=== PATIENT | female | born 1935 | race Caucasian/White ===

== ENCOUNTER → 2020-06-27 11:25 | Outpatient (BNVA) | payer MEDICARE, SELFPAY | PROVIDERS: PCP Internal Medicine; Visit Provider Internal Medicine | DX: J44.9 Chronic obstructive pulmonary disease, unspecified (principal); G70.00 Myasthenia gravis without (acute) exacerbation | CPT/HCPCS: 99212 ==

== ENCOUNTER 2020-08-19 11:53 | Outpatient (REF) | payer MEDICARE, SELFPAY ==
--- NOTE | ~2020-08-19 | XR_ITS ---
EXAMINATION: THORACIC SPINE X-RAY, LEFT RIB AND CHEST X-RAY CLINICAL INFORMATION: Back pain. Fall. COMPARISON: Previous chest x-ray and chest CT September 2017 TECHNIQUE: 3 views of the thoracic spine, one view of the chest and 3 views of the left ribs FINDINGS: Thoracic spine: There is a severe old T12 vertebral body compression fracture that is unchanged. No acute fracture or dislocation is seen. There is a sclerotic lesion in the T7 vertebral body that is unchanged. There is multilevel degenerative change. Chest and left RIBS: The cardiac and mediastinal contours are stable. There is a large esophageal hernia. The lungs are clear. There is no pleural effusion or pneumothorax. No rib fracture is seen. XR/XR ribs LT min 3V w CXR1V IMPRESSION: Thoracic spine: Old T12 vertebral body compression fracture and sclerotic lesion in the T7 vertebral body similar to previous exams. Degenerative changes. No acute fracture seen. Chest and left RIBS: Large esophageal hernia. No evidence for acute disease in the chest. No rib fracture seen.
--- NOTE | ~2020-08-19 | XR_ITS ---
EXAMINATION: THORACIC SPINE X-RAY, LEFT RIB AND CHEST X-RAY CLINICAL INFORMATION: Back pain. Fall. COMPARISON: Previous chest x-ray and chest CT September 2017 TECHNIQUE: 3 views of the thoracic spine, one view of the chest and 3 views of the left ribs FINDINGS: Thoracic spine: There is a severe old T12 vertebral body compression fracture that is unchanged. No acute fracture or dislocation is seen. There is a sclerotic lesion in the T7 vertebral body that is unchanged. There is multilevel degenerative change. Chest and left RIBS: The cardiac and mediastinal contours are stable. There is a large esophageal hernia. The lungs are clear. There is no pleural effusion or pneumothorax. No rib fracture is seen. XR/XR thoracic spine 3V IMPRESSION: Thoracic spine: Old T12 vertebral body compression fracture and sclerotic lesion in the T7 vertebral body similar to previous exams. Degenerative changes. No acute fracture seen. Chest and left RIBS: Large esophageal hernia. No evidence for acute disease in the chest. No rib fracture seen.
== END 2020-08-19 11:54 | disposition home or self-care (01) ==
LOC: HO.HMGCX 11:53
PROVIDERS: PCP Internal Medicine; Visit Provider Nurse Practitioner Family
DX: M54.9 Dorsalgia, unspecified (principal); R07.89 Other chest pain; Z91.81 History of falling
CPT/HCPCS: 71101; 72072

== ENCOUNTER 2020-10-05 04:48 | Emergency (ER) | payer MEDICARE, SELFPAY ==
--- NOTE | ~2020-10-05 | XR_ITS ---
EXAMINATION: XR CHEST CLINICAL INFORMATION: Dyspnea COMPARISON: 08/19/2020 TECHNIQUE: Frontal view of the chest was obtained. FINDINGS: Cardiac leads overlie the chest. Lung volumes are low. Hazy opacity at the right base noted. No pleural effusion or pneumothorax. The cardiomediastinal silhouette is within normal limits. There is a known prominent hiatal hernia. XR/XR chest 1V IMPRESSION: Hazy opacity at the right base could represent atelectasis or pneumonia. Prominent hiatal hernia again noted.
[2020-10-05 04:47] VITALS: BP 180/100; PULSE 60; O2SAT 96
--- NOTE | 2020-10-05 04:51 | ECG_ITS ---
Test Reason : SOB Blood Pressure : / mmHG Vent. Rate : 058 BPM Atrial Rate : 058 BPM P-R Int : 186 ms QRS Dur : 068 ms QT Int : 404 ms P-R-T Axes : 030 -14 009 degrees QTc Int : 396 ms Sinus bradycardia Otherwise normal ECG When compared with ECG of 19-MAY-2017 21:24, Criteria for Inferior infarct are no longer Present Referred By: Generic ED Physician Electronically Signed By:TED SKY
[2020-10-05 04:52] VITALS: BP 206/87; PULSE 59; RESP 18; TEMP 36.6; O2SAT 96; BMI 31.4
--- NOTE | 2020-10-05 05:41 | ED_ITS ---
HPI - General Adult General Chief complaint: General Medical Stated complaint: HYPERTENSIVE Time Seen by Provider: 10/05/20 05:41 History of Present Illness HPI narrative: Patient history of COPD. History of myasthenia gravis. Patient's baseline is on oxygen p.r.n.. Walking to the bathroom got short of breath. Sat down. On EMS arrival patient's symptom has already resolved. Noted to have an elevated blood pressures sent in for further evaluation. She denies having any chest pain or coughing or congestion or upper respiratory symptoms. No fever no chills no abdominal pain no leg weakness patient from home. No new medications. Related Data Home Medications Medication Instructions Recorded Confirmed albuterol sulfate 90 mcg/actuation 2 puff INHALATION Q4H PRN 06/27/20 10/05/20 aerosol inhaler fluticasone 250 mcg-salmeterol 50 1 ea INHALATION BID 06/27/20 10/05/20 mcg/dose blistr powdr for inhalation furosemide 40 mg tablet 40 mg PO DAILY PRN 06/27/20 10/05/20 levothyroxine 88 mcg tablet 88 mcg PO DAILY 06/27/20 10/05/20 metoprolol succinate 50 mg 50 mg PO DAILY 06/27/20 10/05/20 tablet,extended release 24 hr omeprazole 20 mg capsule,delayed 40 mg PO DAILY 06/27/20 10/05/20 release oxybutynin chloride 10 mg 10 mg PO DAILY 06/27/20 10/05/20 tablet,extended release 24 hr prednisone 2.5 mg tablet 2.5 mg PO Q OTHER DAY 06/27/20 10/05/20 simvastatin 10 mg tablet 10 mg PO BEDTIME 06/27/20 10/05/20 timolol maleate 0.5 % eye drops 1 drp OPHTHALMIC-RIGHT QAM 06/27/20 10/05/20 Allergies Allergy/AdvReac Type Severity Reaction Status Date / Time acetaminophen [From VICODIN] Allergy Unknown UNKNOWN Verified 06/27/20 11:38 hydrocodone [From VICODIN] Allergy Unknown UNKNOWN Verified 06/27/20 11:38 lisinopril [LISINOPRIL] Allergy Unknown ANGIOEDEMA, Verified 06/27/20 11:38 tongue swelling Review of Systems Review of Systems: Positive shortness of breath earlier No nausea no vomiting No chest pain No focal weakness No abdominal pain No bloody stool Yes all other systems are reviewed and are negative [facility] Past Medical History Attestation statement: The following information was validated with the patient. Medical History COPD (chronic obstructive pulmonary disease) Myasthenia gravis Social History Social History Advance Directives: No Advance Directives Information Provided: Yes Physical Exam Vital Signs: Vital Signs: Last Vital Signs Temp 97.9 F 10/05/20 04:52 Pulse 59 10/05/20 04:52 Resp 18 10/05/20 04:52 BP 206/87 H 10/05/20 04:52 Pulse Ox 96 10/05/20 04:52 Body Mass Index 31.4 Appearance: Alert. Oriented X3. No acute distress. Eyes: Pupils equal, round and reactive to light. ENT: Pharynx normal. Neck: Normal inspection. Neck supple. No lymph nodes noted. No crepitus CVS: Normal heart rate and rhythm. Pulses normal. Normal S1 and S2 Respiratory: No respiratory distress. Breath sounds normal. No Wheezing. No rales Abdomen: Soft and nontender. No rigidity. No distention. good BS x4 Skin: Skin warm and dry. Normal skin color. Normal skin turgor. Extremities: No lower extremity edema. Neurovascular intact to all extremities. No Lacerations. No Rash Neuro: Oriented X 3. No motor deficit. No sensory deficit. Moving all extermities. No slurred speech Medical Decision Making MDM Narrative Medical decision making narrative: Patient well-appearing no acute distress. Will get baseline labs. O2 sat is 95%. No fever no chills. No chest pain. No shortness of breath. No focal weakness. Baseline had blood pressure however was elevated. 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 Will have patient monitor. Discharge Plan Discharge Prescriptions: No Action albuterol sulfate 90 mcg/actuation HFA aerosol inhaler 2 puff inhalation Q4H PRN (Reason: Wheezing) RF: 0 fluticasone propion-salmeterol 250-50 mcg/dose blister with device 1 ea inhalation BID RF: 0 timolol maleate 0.5 % drops 1 drp ophthalmic-Right QAM RF: 0 simvastatin 10 mg tablet 10 mg PO BEDTIME RF: 0 metoprolol succinate 50 mg tablet extended release 24 hr 50 mg PO DAILY RF: 0 omeprazole 20 mg capsule,delayed release(DR/EC) 40 mg PO DAILY RF: 0 oxybutynin chloride 10 mg tablet extended release 24hr 10 mg PO DAILY RF: 0 prednisone 2.5 mg tablet 2.5 mg PO Q OTHER DAY RF: 0 furosemide 40 mg tablet 40 mg PO DAILY PRN (Reason: Edema) RF: 0 levothyroxine 88 mcg tablet 88 mcg PO DAILY RF: 0
[2020-10-05 05:59] VITALS: BP 206/80; PULSE 57
[2020-10-05] MEDS: Furosemide 40 MG/4 ML VIAL IVPUSH (05:59)
[2020-10-05] MEDS: Metoprolol Succinate ER 50 MG TAB.ER.24H PO (05:59)
[2020-10-05 06:00] VITALS: BP 173/73; BP 189/97; PULSE 59; PULSE 63; RESP 13; RESP 19; O2SAT 95
[2020-10-05 06:11] LABS: MANUAL DIFF FLAG NO
[2020-10-05 06:12] LABS: Basophils Absolute Auto 0.1 X10*3/uL (0.0-0.2); Basophils Percent Auto 0.9 % (0-2); Eosinophils Absolute Auto 0.5 X10*3/uL (0.0-0.4); Eosinophils Percent Auto 5.5 % (0-4); Hematocrit 39.2 % (37-47); Hemoglobin 12.1 g/dl (12.0-16.0); Imm Gran Abs Auto 0.04 X10*3/uL (0.00-0.03); Imm Gran Pct Auto 0.5 % (0.0-0.4); Lymphocytes Absolute Auto 2.1 X10*3/uL (1.2-4.9); Mean Corpuscular HGB Conc 30.9 g/dl (31.0-35.0); Mean Corpuscular Hemoglobin 26.5 pg (27.0-33.0); Mean Corpuscular Volume 85.8 fL (80-98); Mean Platelet Volume 10.5 fL (9.4-12.3); Monocytes Absolute Auto 0.8 X10*3/uL (0.1-1.2); Monocytes Percent Auto 8.6 % (2-11); Neutrophils Absolute Auto 5.3 X10*3/uL (2.0-8.3); Neutrophils Percent Auto 60.5 % (45-73); Platelet Count 253 X10*3/uL (160-400); Red Blood Count 4.57 X10*6/uL (4.20-5.50); Red Cell Distribution Width 15.2 % (11.0-16.0); White Blood Count 8.7 X10*3/uL (4.8-10.8)
[2020-10-05 06:35] LABS: Anion Gap 10 (12-20); Blood Urea Nitrogen 16 mg/dL (9-16); Calcium 10.3 mg/dL (8.4-10.2); Carbon Dioxide 29 mmol/L (22-29); Chloride 107 mmol/L (96-108); Creatinine Clr Calc Pharmacy 45.3; Estimated Glomerular Filt Rate 54; Glucose Random 100 mg/dL (60-115); Sodium 141 mmol/L (135-145)
--- NOTE | 2020-10-05 06:52 | ED.GENADULT ---
HPI - General Adult General Chief complaint: General Medical Stated complaint: HYPERTENSIVE Time Seen by Provider: 10/05/20 05:41 Related Data Home Medications Medication Instructions Recorded Confirmed albuterol sulfate 90 mcg/actuation 2 puff INHALATION Q4H PRN 06/27/20 10/05/20 aerosol inhaler fluticasone 250 mcg-salmeterol 50 1 ea INHALATION BID 06/27/20 10/05/20 mcg/dose blistr powdr for inhalation furosemide 40 mg tablet 40 mg PO DAILY PRN 06/27/20 10/05/20 levothyroxine 88 mcg tablet 88 mcg PO DAILY 06/27/20 10/05/20 metoprolol succinate 50 mg 50 mg PO DAILY 06/27/20 10/05/20 tablet,extended release 24 hr omeprazole 20 mg capsule,delayed 40 mg PO DAILY 06/27/20 10/05/20 release oxybutynin chloride 10 mg 10 mg PO DAILY 06/27/20 10/05/20 tablet,extended release 24 hr prednisone 2.5 mg tablet 2.5 mg PO Q OTHER DAY 06/27/20 10/05/20 simvastatin 10 mg tablet 10 mg PO BEDTIME 06/27/20 10/05/20 timolol maleate 0.5 % eye drops 1 drp OPHTHALMIC-RIGHT QAM 06/27/20 10/05/20 Allergies Allergy/AdvReac Type Severity Reaction Status Date / Time acetaminophen [From VICODIN] Allergy Unknown UNKNOWN Verified 06/27/20 11:38 hydrocodone [From VICODIN] Allergy Unknown UNKNOWN Verified 06/27/20 11:38 lisinopril [LISINOPRIL] Allergy Unknown ANGIOEDEMA, Verified 06/27/20 11:38 tongue swelling PMFSH Past Medical History Medical History COPD (chronic obstructive pulmonary disease) Myasthenia gravis Social History Social History Advance Directives: No Advance Directives Information Provided: Yes Physical Exam Vital Signs: Vital Signs: Last Vital Signs Temp 97.9 F 10/05/20 04:52 Pulse 59 10/05/20 06:00 Resp 13 10/05/20 06:00 BP 189/97 H 10/05/20 06:00 Pulse Ox 95 10/05/20 06:00 Body Mass Index 31.4 Medical Decision Making MDM Narrative Medical decision making narrative: Patient repeat blood pressure approximately 190/90 after blood pressure medication. Hemoglobin stable at 12. Patient's EKG showed a sinus pattern heart rate is 60 IN QRS QT with Teresa is no acute ST segment elevation noted. Will discharge patient hand. Close follow-up on an outpatient basis. Blood pressure checks. Patient not short of breath. No white count. No coughing or congestion or upper respiratory symptoms. Chest x-ray showed no definitive focal infiltrate more likely patient has atelectasis. In stable condition. Lab Data Result diagrams: 10/05/20 06:04 10/05/20 06:04 Labs: Lab Results 10/05/20 10/05/20 Range/Units 06:04 06:04 WBC 8.7 (4.8-10.8) X10*3/uL RBC 4.57 (4.20-5.50) X10*6/uL Hgb 12.1 (12.0-16.0) g/dl Hct 39.2 (37-47) % MCV 85.8 (80-98) fL MCH 26.5 L (27.0-33.0) pg MCHC 30.9 L (31.0-35.0) g/dl RDW 15.2 (11.0-16.0) % Plt Count 253 (160-400) X10*3/uL MPV 10.5 (9.4-12.3) fL Immature Gran % (Auto) 0.5 H (0.0-0.4) % Neut % (Auto) 60.5 (45-73) % Lymph % (Auto) 24.0 (20-40) % [place] % (Auto) 8.6 (2-11) % Eos % (Auto) 5.5 H (0-4) % Baso % (Auto) 0.9 (0-2) % Lymph # (Auto) 2.1 (1.2-4.9) X10*3/uL [place] # (Auto) 0.8 (0.1-1.2) X10*3/uL Eos # (Auto) 0.5 H (0.0-0.4) X10*3/uL Baso # (Auto) 0.1 (0.0-0.2) X10*3/uL Abs Immat Gran (auto) 0.04 H (0.00-0.03) X10*3/uL Absolute Neuts (auto) 5.3 (2.0-8.3) X10*3/uL Absolute Nucleated RBC 0.000 (0.0-0.012) X10*3/uL Nucleated RBC % (auto) 0.0 (0.0-0.2) /100WBC Sodium 141 (135-145) mmol/L Potassium 5.0 (3.3-5.1) mmol/L Chloride 107 (96-108) mmol/L Carbon Dioxide 29 (22-29) mmol/L Anion Gap 10 L (12-20) BUN 16 (9-16) mg/dL Creatinine 0.98 (0.5-1.4) mg/dL Estim Creat Clear Calc 45.3 Estimated GFR 54 Random Glucose 100 (60-115) mg/dL Calcium 10.3 H (8.4-10.2) mg/dL Discharge Plan Discharge Clinical Impression: COPD (chronic obstructive pulmonary disease), Hypertension Patient Disposition: Home, Self-Care Instructions: Hypertension (ED) Prescriptions: No Action albuterol sulfate 90 mcg/actuation HFA aerosol inhaler 2 puff inhalation Q4H PRN (Reason: Wheezing) RF: 0 fluticasone propion-salmeterol 250-50 mcg/dose blister with device 1 ea inhalation BID RF: 0 timolol maleate 0.5 % drops 1 drp ophthalmic-Right QAM RF: 0 simvastatin 10 mg tablet 10 mg PO BEDTIME RF: 0 metoprolol succinate 50 mg tablet extended release 24 hr 50 mg PO DAILY RF: 0 omeprazole 20 mg capsule,delayed release(DR/EC) 40 mg PO DAILY RF: 0 oxybutynin chloride 10 mg tablet extended release 24hr 10 mg PO DAILY RF: 0 prednisone 2.5 mg tablet 2.5 mg PO Q OTHER DAY RF: 0 furosemide 40 mg tablet 40 mg PO DAILY PRN (Reason: Edema) RF: 0 levothyroxine 88 mcg tablet 88 mcg PO DAILY RF: 0 Referrals: Physician,Unknown [Primary Care Provider] - 2 days
--- NOTE | 2020-10-05 06:54 | PC.NURSE ---
MD AT BEDSIDE FOR RE EVALUATION FOLLOWING MEDICATION ADMINISTRATION. PLAN FOR PT TO BE DISCHARGED, PT ASYMPTOMATIC AND AGREEABLE TO PLAN.
== END 2020-10-05 07:55 | disposition home or self-care (01) ==
PROVIDERS: Emergency Provider Emergency Medicine Emergency Medical Services
DX: I10 Essential (primary) hypertension (principal); J44.9 Chronic obstructive pulmonary disease, unspecified; Z79.899 Other long term (current) drug therapy
CPT/HCPCS: 36415; 71045; 80048; 85025; 93005; 96374; 99284; J1940

== ENCOUNTER → 2021-03-06 10:55 | Outpatient (BNVA) | payer MEDICARE, SELFPAY | PROVIDERS: PCP Internal Medicine; Visit Provider Internal Medicine | DX: J44.9 Chronic obstructive pulmonary disease, unspecified (principal); G70.00 Myasthenia gravis without (acute) exacerbation | CPT/HCPCS: 99212 ==

== ENCOUNTER 2021-04-17 09:46 | Outpatient (REF) | payer MEDICARE, SELFPAY ==
[2021-04-17 11:18] LABS: MANUAL DIFF FLAG NO
[2021-04-17 11:36] LABS: Basophils Absolute Auto 0.1 X10*3/uL (0.0-0.2); Basophils Percent Auto 0.9 % (0-2); Eosinophils Absolute Auto 0.4 X10*3/uL (0.0-0.4); Eosinophils Percent Auto 2.9 % (0-4); Hematocrit 40.2 % (37.0-47.0); Hemoglobin 12.4 g/dl (12.0-16.0); Imm Gran Abs Auto 0.05 X10*3/uL (0.00-0.03); Imm Gran Pct Auto 0.4 % (0.0-0.4); Lymphocytes Absolute Auto 1.9 X10*3/uL (1.2-4.9); Lymphocytes Percent Auto 15.5 % (20-40); Mean Corpuscular HGB Conc 30.8 g/dl (31.0-35.0); Mean Corpuscular Hemoglobin 25.6 pg (27.0-33.0); Mean Corpuscular Volume 83.1 fL (80.0-98.0); Mean Platelet Volume 11.1 fL (9.4-12.3); Monocytes Percent Auto 8.2 % (2-11); Neutrophils Absolute Auto 8.8 x10*3/uL (2.0-8.3); Neutrophils Percent Auto 72.1 % (45-73); Platelet Count 360 X10*3/uL (160-400); Red Blood Count 4.84 X10*6/uL (4.20-5.50); Red Cell Distribution Width 14.5 % (11.0-16.0); White Blood Count 12.2 X10*3/uL (4.8-10.8)
[2021-04-17 12:16] LABS: Thyroid Stimulating Hormone 1.02 uIU/mL (0.32-4.0); Vitamin D 25-OH Total 42.3 ng/mL (>30)
== END 2021-04-17 09:47 | disposition home or self-care (01) ==
LOC: HO.HMGCLDS 09:46
PROVIDERS: Visit Provider Internal Medicine
DX: I10 Essential (primary) hypertension (principal); E78.00 Pure hypercholesterolemia, unspecified; E03.9 Hypothyroidism, unspecified; J45.30 Mild persistent asthma, uncomplicated; K21.9 Gastro-esophageal reflux disease without esophagitis; N39.41 Urge incontinence; E55.9 Vitamin D deficiency, unspecified; G47.00 Insomnia, unspecified
CPT/HCPCS: 36415; 82306; 84443; 85025

== ENCOUNTER 2021-04-21 09:11 | Outpatient (REF) | payer MEDICARE, SELFPAY ==
[2021-04-21 12:24] LABS: Alanine Aminotransferase 10 U/L (0-31); Albumin Level 3.5 g/dL (3.5-5.0); Alkaline Phosphatase 99 U/L (39-117); Anion Gap 14 (12-20); Aspartate Amino Transferase 14 U/L (5-31); Bilirubin Total 0.5 mg/dL (0.0-1.0); Blood Urea Nitrogen 28 mg/dL (9-16); Carbon Dioxide 27 mmol/L (22-29); Chloride 105 mmol/L (96-108); Cholesterol 168 mg/dL; Estimated Glomerular Filt Rate 51; Glucose Fasting 92 mg/dL (60-99); HDL Cholesterol 44 mg/dL; LDL Cholesterol Calculated 99 mg/dl; Potassium 4.5 mmol/L (3.3-5.1); Sodium 141 mmol/L (135-145); Total Protein 6.4 g/dL (6.5-8.0); Triglycerides 128 mg/dL
== END 2021-04-21 09:12 | disposition home or self-care (01) ==
LOC: HO.HMGCLDS 09:11
PROVIDERS: Visit Provider Internal Medicine
DX: I10 Essential (primary) hypertension (principal); E78.00 Pure hypercholesterolemia, unspecified; E03.9 Hypothyroidism, unspecified; J45.30 Mild persistent asthma, uncomplicated; K21.9 Gastro-esophageal reflux disease without esophagitis; N39.41 Urge incontinence; E55.9 Vitamin D deficiency, unspecified; G70.00 Myasthenia gravis without (acute) exacerbation
CPT/HCPCS: 36415; 80053; 80061

== ENCOUNTER 2021-05-14 14:52 | Outpatient (REF) | payer MEDICARE, SELFPAY ==
--- NOTE | ~2021-05-14 | FL_ITS ---
EXAMINATION: XR BARIUM SWALLOW CLINICAL INFORMATION: Mild myasthenia gravis without exacerbation. COMPARISON: None. TECHNIQUE: Routine modified barium swallow was performed with patient sitting with lateral fluoroscopy. FINDINGS: Following oral administration of various consistencies of thin, thick, semisolid and solid food coated with barium, there is normal propagation of bolus from the oral cavity through the pharynx and esophagus and into the stomach without any laryngeal penetration or aspiration. There is minimal retention of food in the valleculae which clears with subsequent dry swallowing. A prominent cricoesophageal sphincter is noted indenting the posterior cervical esophageal wall and may cause difficulty swallowing solid food. FLUOROSCOPY TIME: 1.9 minutes DOSE AREA PRODUCT: 1.589 Gy-m2 cm squared) FL/FL barium swallow modified IMPRESSION: No evidence of laryngeal penetration or aspiration. There is minimal retention of barium in the valleculae which cleared with subsequent dry swallowing. Correlate with speech therapy results.
--- NOTE | 2021-05-16 11:18 | MHC.SL.IMP ---
Date of Plan of Treatment: 05/14/21 Onset of Symptoms/Illness: 04/09/16 Date Treatment Started: 05/14/21 Admitting Diagnosis: Myasthenia gravis COPD Primary Speech & Language Diagnosis: R13.12 Oropharyngeal Phase Dysphagia Reason for Today's Visit: 27207 Modified Barium Swallow Study Pre-evaluation Dietary Consistencies: Regular Pre-evaluation Liquid Consistency: Thin Pre-evaluation Medication Administration: Whole with Liquid Medical History: Modified Barium Swallow Study Fluoroscopic Evaluation of Swallowing Function CPT Code 02343 Evaluation Year: 2021 Reason for Study: Patient reports globus sensation. Referring Physician: Kenton Lawrence DO FACP Evaluating Clinician: Tika Cannon MA, CCC-SPECIAL EDUCATION CLASSROOM AIDE Study Number: 1 Patient Name: Lorri Skinner Age: 85 Gender: Female MEDICAL HISTORY: Primary (admitting) Diagnosis: Myasthenia gravis Year of Onset or Diagnosis: 2016 Comorbidities: COPD Current (pre-evaluation) Intake/Diet: Route: PO Diet Grade: Regular Liquid Consistencies: Thin Pre-Study Functional Oral Intake Scale (FOIS): 7- Total oral intake with no restrictions Pain: None reported at time of study SUBJECTIVE: Patient is an 85 year old female referred for a modified barium swallow study (MBSS) by her primary care physician, Kenton Lawrence DO. Patient was accompanied to this evaluation by her daughters, who assisted in providing background information included in this report. 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 Patient is complaining of globus sensation and increased saliva production. Patient reportedly consumes unmodified textures regular solids and thin liquids. Patient denies pain when swallowing. Patient had MBSS done previously at [facility] on 04/09/16, prior to receiving her myasthenia gravis diagnosis. Previous MBSS revealed severe oropharyngeal dysphagia, evidence of penetration. She was recommended modified diet pureed solids (NDD1)/nectar thick liquids at that time based on MBSS results. -Chest x-ray 10/05/20: ?Hazy opacity at the right base could represent atelectasis or pneumonia. Prominent hiatal hernia again noted.? Oral Motor Exam Mouth Occlusion: Normal Oral-Facial Teeth Characteristics: Intact/Normal Oral-Facial Lip Pucker Description: Normal Oral-Facial Puff Cheeks Description: Normal Tongue Size: Normal Is patient able to manage secretions?: Yes Food and Liquid Trials: Oral Impairment: Lip Closure: 0=No labial escape Oral Impairment: Tongue Control During Bolus Hold: 2=Posterior escape of less than half of bolus Oral Impairment: Bolus Preparation/Mastication: 1=Slow prolonged chewing/mashing with complete re-collection Oral Impairment: Bolus Transport/Lingual Motion: 3=Repetitive/disorganized tongue motion Oral Impairment: Oral Residue: 2=Residue collection on oral structures Oral Impairment:Initiation of Pharyngeal Swallow: 3=Bolus head in pyriforms Pharyngeal Impairment: Soft Palate Elevation: 0=No bolus between soft palate (SP)/pharyngeal wall (PW) Pharyngeal Impairment: Laryngeal Elevation: 1=Partial thyroid cartilage/arytenoids to epiglottic petiole movement Pharyngeal Impairment: Anterior Hyoid Excursion: 1=Partial anterior movement Pharyngeal Impairment: Epiglottic Movement: 0=Complete inversion Pharyngeal Impairment: Laryngeal Vestibular Closure:: 0=Complete: no air/contrast in laryngeal vestibule Pharyngeal Impairment: Pharyngeal Stripping Wave: 2=Absent Pharyngeal Impairment: Pharyngeal Contraction: Did not test Pharyngeal Impairment: Pharyngoesophageal Segment Openin=Complete distension and complete duration: no obstruction of flow Pharyngeal Impairment: Tongue Base (TB) Retraction: 3=Wide column of contrast/air between TB and posterior PW Pharyngeal Impairment: Pharyngeal Residue: 2=Collection of residue within or on pharyngeal structures Pharyngeal Impairment: Esophageal Clearance Upright Position: Did not test Impressions and Recommendations Clinical Observations: OBJECTIVE: Time-out: performed at 3:25 Evaluation Start: 3:15; Stop: 3:20 Patient Positioning: Seated 70-90 degrees Viewing Planes: LATERAL ONLY Contrast: MBSImP? Standardized Protocol using commercially prepared, standardized Barium viscosities, including: Varibar? THIN LIQUID (40% w/v, <15 cps) , 1/2 Shortbread Cookie (1 x1 x.25 ) MBSImP ID: [id number] MBSImP Results: Lip closure for intraoral bolus containment resulted in no labial escape. Tongue control during bolus hold resulted in posterior escape of less than half of the bolus. Bolus preparation and mastication resulted in slow, prolonged chewing/mashing but with complete re-collection. Bolus transport/lingual motion was with repetitive/disorganized motion of the tongue. Oral residue was a collection on oral structures. Initiation of the pharyngeal swallow occurred when the bolus head was in the pyriform sinuses. Soft palate elevation resulted in no bolus between the soft palate and the pharyngeal wall. Laryngeal elevation was decreased, with partial superior movement of the thyroid cartilage/partial approximation of the arytenoids to the epiglottic petiole. Anterior hyoid excursion demonstrated partial anterior movement. Epiglottic movement resulted in complete inversion. Laryngeal vestibular closure was complete, as indicated by no air or contrast within the laryngeal vestibule at the height of the swallow. Pharyngeal stripping wave was absent. Pharyngeal contraction could not be determined due to logistical reasons not related to physiologic impairment. Pharyngoesophageal segment opening was completely distended for complete duration with no obstruction of bolus flow. Tongue base retraction allowed a wide column of contrast or air between the retracted tongue base and the posterior pharyngeal wall. Pharyngeal residue was a collection of residue within or on pharyngeal structures. Esophageal clearance in the upright position could not be assessed due to logistical reasons not related to physiologic impairment. Oral Impairment Score: 11 Pharyngeal Impairment Score: 9 (absence of score, component 13) Esophageal Impairment Score: --- (absence of score, component 17) Laryngeal Penetration and Aspiration: Neither penetration nor aspiration was observed in today's study with Cookie, Thin. 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 ASSESSMENT: Clinician Assessment: This exam was conducted by a multidisciplinary team which included radiologist, speech language pathologist, and on call pharmacy technician. Patient was seated upright in chair at optimal 90 degree angle for lateral view only. Patient trialed the following liquid and solid consistencies: 5 mL thin liquid barium, individual cup sip thin liquid barium, sequential cup sip thin liquid barium, pureed solid (mixture applesauce with barium paste), ground solid (mixture chicken salad with barium paste), regular solid (Mckenzie Doone cookie coated with barium paste), barium pill tablet. Good labial seal with no labial escape. Premature posterior escape with both solids and liquids, which pooled in the valleculae prior to swallow trigger, but did not enter the airway. Repetitive posterior tongue motion, especially with solids. Prolonged mastication, mild oral residue cleared with subsequent dry swallow. Delayed pharyngeal swallow trigger initiated when bolus was at level of pyriforms. No nasopharyngeal reflux. Partial superior movement of thyroid cartilage and partial anterior hyoid excursion. Complete epiglottic inversion and complete laryngeal vestibular closure. No evidence of aspiration or penetration with solids and liquids. Mild collection of residue on tongue base, in valleculae, and on posterior pharyngeal wall after initial swallow. Pharyngeal residue cleared with subsequent dry swallow. No obstruction of flow through pharyngoesophageal segment opening. Patient cleared pill tablet without difficulty. Liquid Intake Recommendation: Thin Liquid Intake Strategies: Small Sips Double Swallow Dietary Recommendations: Regular Medication Administration: Whole with Liquid Compensatory Strategies Recommended: Sitting Upright (90 deg) Double Swallow Small Bites and Sips Alternate Liquids/Solids Rate of Ingestion Change Supervision during eating and or drinking: Intermittent Supervision Recommended Treatments: Compens. Strategy Educat. Recommendation for Speech Therapy: Outpatient Speech Therapy Text Comment: 1 f/u PLAN: Intake Recommendations: Route: PO Diet Grade: Regular Liquid Consistencies: Thin Post-Study Functional Oral Intake Scale (FOIS): 7- Total oral intake with no restrictions No evidence of aspiration or penetration. Additional dry swallow cleared oral and pharyngeal residue. Recommend patient resume unmodified diet textures regular solids and thin liquids with the following strategies to promote clearance of residue: -small bites of food -cut food into small pieces and moisten with sauce/gravy as needed -alternate bite of food with sip of liquid -double swallow -upright 90 degree position during PO intake and for at least 30 minutes afterwards Recommend 1 additional f/u with speech-language pathologist for education RE: results of MBSS and recommended strategies. Suggested Referrals: The patient might benefit from a referral to: Gastroenterology Indication for Referral: Further workup. Therapy Recommendations: Therapy will be initiated Frequency per Week: 1 Number of Weeks: 1 The following compensatory strategies and/or therapeutic exercises will be part of the upcoming therapy/management plan: Additional Swallow(s) per Bolus Prognosis for Improvement: The prognosis for the patient to meet nutritional needs by mouth is fair based on degree of impairment. Fdc Goals: ? The patient and/or family will participate in further education for swallowing goals. Short Term Goals: ? Education - The patient, family, caregiver will verbalize/demonstrate understanding of the results of this evaluation, the above recommendations, and the swallowing guidelines. Clinician - Supplemental, Miscellaneous Communication: It is important to note MBSS objective studies are snapshots in time and Patient function might vary with factors such as time of day or concomitant medical conditions. For this reason, the final treatment plan for this patient should rest with their medical care team. Additional recommendations should be considered with the totality of the Patient in mind. Thank for the opportunity to participate in the care of this patient. If you have any questions about the content of this report, please contact the [facility] at [facility]. Education: Education regarding findings from today's study and plans for therapy were provided to Patient and family/caregiver through Verbal Instruction. Understanding was expressed by the Patient and family/caregiver. Claims Analyst Clinician/Clinical Fellow: No Supervisory Statement: N/A Speech Language Pathologist: Tika Cannon M.A., CCC-SPECIAL EDUCATION CLASSROOM AIDE
== END 2021-05-14 14:53 | disposition home or self-care (01) ==
LOC: HO.XRAY 14:52
PROVIDERS: Visit Provider Internal Medicine
DX: G70.00 Myasthenia gravis without (acute) exacerbation (principal)
CPT/HCPCS: 74230; 92611

== ENCOUNTER 2021-06-25 09:59 | Outpatient (REF) | payer MEDICARE, SELFPAY ==
--- NOTE | ~2021-06-25 | FL_ITS ---
EXAMINATION: FL BARIUM SWALLOW CLINICAL INFORMATION: Dysphagia. COMPARISON: None TECHNIQUE: Barium swallow examination is performed using fluoroscopic evaluation in addition to multiple fluoroscopic spot views. The patient is imaged both upright and prone and using both thick and thin sulfate along with effervescent granules. Fluoroscopy time: 1.7 minutes DAP: 7.247 Gycm2 Images: 42 FINDINGS: Following oral administration of thick barium, there is slow but normal propagation of bolus from the oral cavity through the pharynx and into the mid esophagus. There is stagnation of barium within the distal esophagus secondary to undulation and a moderate-sized hiatal hernia. On oral administration of barium-coated turkey, there is normal oral mastication with normal propagation of bolus from the oral cavity through the esophagus and into the stomach. There is no reflux seen. FL/FL barium swallow IMPRESSION: Moderate-sized hiatal hernia with mild reflux but otherwise unremarkable barium swallow exam.
== END 2021-06-25 10:00 | disposition home or self-care (01) ==
LOC: HO.XRAY 09:59
PROVIDERS: Visit Provider Internal Medicine Gastroenterology
DX: R13.10 Dysphagia, unspecified (principal)
CPT/HCPCS: 74220

== ENCOUNTER → 2021-09-02 11:00 | Outpatient (BNVA) | payer MEDICARE, SELFPAY | PROVIDERS: PCP Internal Medicine; Visit Provider Internal Medicine | DX: J44.9 Chronic obstructive pulmonary disease, unspecified (principal); G70.00 Myasthenia gravis without (acute) exacerbation; Z79.52 Long term (current) use of systemic steroids; Z79.899 Other long term (current) drug therapy | CPT/HCPCS: 99212 ==

== ENCOUNTER 2021-10-31 09:48 | Day surgery (SDC) | payer MEDICARE, SELFPAY ==
[2021-10-31] VITALS (9 sets, daily range): BP systolic 120–165; BP diastolic 63–117; PULSE 62–94; RESP 16–18; TEMP 36.2–36.7; O2SAT 95–100; BMI 39.0
--- NOTE | ~2021-10-31 | XR_ITS ---
EXAMINATION: XR CHEST CLINICAL INFORMATION: Difficulty swallowing. COMPARISON: 10/05/2020 chest radiograph. TECHNIQUE: Frontal view of the chest was obtained. FINDINGS: No significant abnormality is noted involving the heart, lungs, mediastinum, bony thorax or soft tissues. XR/XR chest 1V IMPRESSION: No acute cardiopulmonary process.
--- NOTE | 2021-10-31 10:16 | ECG_ITS ---
Test Reason : diff swallowing Blood Pressure : / mmHG Vent. Rate : 067 BPM Atrial Rate : 067 BPM P-R Int : 168 ms QRS Dur : 074 ms QT Int : 392 ms P-R-T Axes : 025 -20 014 degrees QTc Int : 414 ms Normal sinus rhythm Inferior infarct , age undetermined Abnormal ECG When compared with ECG of 05-OCT-2020 05:17, Inferior infarct is now Present Referred By: Sindi Mendez Electronically Signed By:YSABEL MERINO MD
[2021-10-31 10:59] LABS: MANUAL DIFF FLAG NO
[2021-10-31 11:03] LABS: Basophils Absolute Auto 0.1 X10*3/uL (0.0-0.2); Basophils Percent Auto 0.9 % (0-2); Eosinophils Absolute Auto 0.3 X10*3/uL (0.0-0.4); Eosinophils Percent Auto 3.3 % (0-4); Hematocrit 32.5 % (37.0-47.0); Hemoglobin 9.8 g/dl (12.0-16.0); Imm Gran Abs Auto 0.03 X10*3/uL (0.00-0.03); Imm Gran Pct Auto 0.3 % (0.0-0.4); Lymphocytes Absolute Auto 1.9 X10*3/uL (1.2-4.9); Lymphocytes Percent Auto 19.4 % (20-40); Mean Corpuscular HGB Conc 30.2 g/dl (31.0-35.0); Mean Corpuscular Hemoglobin 22.9 pg (27.0-33.0); Mean Corpuscular Volume 75.9 fL (80.0-98.0); Mean Platelet Volume 9.7 fL (9.4-12.3); Monocytes Absolute Auto 0.8 X10*3/uL (0.1-1.2); Monocytes Percent Auto 8.3 % (2-11); Neutrophils Absolute Auto 6.6 x10*3/uL (2.0-8.3); Neutrophils Percent Auto 67.8 % (45-73); Platelet Count 366 X10*3/uL (160-400); Red Blood Count 4.28 X10*6/uL (4.20-5.50); White Blood Count 9.8 X10*3/uL (4.8-10.8)
[2021-10-31 11:08] LABS: INTERNATIONAL NORM RATIO 1.1 (0.9-1.1); Prothrombin Time 12.1 SEC (10.0-13.1)
[2021-10-31 11:15] LABS: COVID-19 Test Negative (Negative); IDNOW Serial# 9DB6401D
[2021-10-31 11:16] LABS: Alanine Aminotransferase 7 U/L (0-31); Albumin Level 3.5 g/dL (3.5-5.0); Alkaline Phosphatase 98 U/L (39-117); Anion Gap 10 (12-20); Aspartate Amino Transferase 11 U/L (5-31); Bilirubin Direct 0.2 mg/dL (0.0-0.5); Bilirubin Total 0.6 mg/dL (0.0-1.0); Blood Urea Nitrogen 23 mg/dL (9-16); Calcium 9.8 mg/dL (8.4-10.2); Carbon Dioxide 29 mmol/L (22-29); Chloride 104 mmol/L (96-108); Creatinine Clr Calc Pharmacy 37.5; Estimated Glomerular Filt Rate 46; Glucose Random 112 mg/dL (60-115); Potassium 4.2 mmol/L (3.3-5.1); Sodium 139 mmol/L (135-145); Total Protein 6.2 g/dL (6.5-8.0)
--- NOTE | 2021-10-31 12:58 | ED_ITS ---
HPI - General Adult General Chief complaint: General Medical Stated complaint: cant swallow food Time Seen by Provider: 10/31/21 10:15 Source: patient and family Mode of arrival: ambulatory Limitations: no limitations History of Present Illness HPI narrative: ate pork last night, due for esophageal dilation next Wednesday - just had MBS known hiatal hernia and dysmotility complaint: feels like food is stuck Onset (ago): day(s) (last night) Severity: mild Quality: dull Pain Consistency: intermittent Relieving factors: none Exacerbating factors: eating Associated symptoms: other (vomiting up foam, can keep down scant water but no solids keeps vomiting them up) Treatments prior to arrival: none Related Data Home Medications Medication Instructions Recorded Confirmed albuterol sulfate 90 mcg/actuation 2 puff inhalation Q4H PRN Wheezing 06/27/20 10/31/21 aerosol inhaler fluticasone 250 mcg-salmeterol 50 1 ea inhalation BID 06/27/20 10/31/21 mcg/dose blistr powdr for inhalation furosemide 40 mg tablet 40 mg PO DAILY PRN Edema 06/27/20 10/31/21 levothyroxine 88 mcg tablet 88 mcg PO DAILY 06/27/20 10/31/21 metoprolol succinate 50 mg 50 mg PO DAILY 06/27/20 10/31/21 tablet,extended release 24 hr omeprazole 20 mg capsule,delayed 40 mg PO DAILY 06/27/20 10/31/21 release oxybutynin chloride 10 mg 10 mg PO DAILY 06/27/20 10/31/21 tablet,extended release 24 hr simvastatin 10 mg tablet 10 mg PO BEDTIME 06/27/20 10/31/21 gabapentin 100 mg capsule 100 mg PO BID 09/02/21 10/31/21 losartan 50 mg tablet 1 tab PO DAILY 10/31/21 10/31/21 prednisone 1 mg tablet 1 tab PO DAILY 10/31/21 10/31/21 Allergies Allergy/AdvReac Type Severity Reaction Status Date / Time acetaminophen [From VICODIN] Allergy Unknown UNKNOWN Verified 09/19/21 11:16 hydrocodone [From VICODIN] Allergy Unknown UNKNOWN Verified 09/19/21 11:16 lisinopril [LISINOPRIL] Allergy Unknown ANGIOEDEMA, Verified 09/19/21 11:16 tongue swelling Review of Systems Review of Systems: Constitutional : No Weight loss, No Fever, No Chills ENT/Mouth : No sore throat, No Rhinorrhea Eyes: No Swelling, No Redness Cardiovascular : No Chest Pain, No SOB, NoEdema Respiratory : No Cough, No Sputum, No Wheezing Gastrointestinal : Positive Nausea, Positive Vomiting, no Diarrhea, no abdominal Pain, No Hematochezia, No Melena Genitourinary : No Dysuria, No Urinary Frequency, No Hematuria, No Urgency Musculoskeletal : No joint pain, No Myalgias, No Joint Swelling Skin : No Skin Lesions, No rash Neuro : No Weakness, No Numbness, No Dizziness, No Headache Psych : No Anxiety/Panic, No Depression Heme/Lymph: No Bruising, No Lymphadenopathy Endocrine : No Polyuria, No Polydipsia All other systems reviewed and are negative. [facility] Past Medical History Medical History COPD (chronic obstructive pulmonary disease) Myasthenia gravis Social History Social History Patient Tobacco Use Status: Former Tobacco user Use of substances other than those prescribed or required for medical reasons: No Are you DNR?: No Advance Directives: Yes Advance Directives Information Provided: Yes Advance Directives on File: No Advance Directives Date on File: 10/31/21 Physical Exam ED Vital Signs: Vital Signs - 24 hr 10/31/21 09:50 10/31/21 13:34 10/31/21 14:33 Temperature 98.1 F 97.8 F 97.5 F Pulse Rate 94 75 86 Respiratory Rate 18 16 18 Blood Pressure 120/63 153/85 H 165/117 H Pulse Oximetry 95 98 97 Oxygen Delivery Method Room Air Room Air Room Air Oxygen Flow Rate 10/31/21 14:38 10/31/21 15:25 10/31/21 15:30 Temperature 97.1 F Pulse Rate 66 62 Respiratory Rate 16 16 Blood Pressure 154/76 H 140/73 H 134/66 Pulse Oximetry 100 100 Oxygen Delivery Method Simple Mask Simple Mask Oxygen Flow Rate 8 8 10/31/21 15:35 10/31/21 15:40 10/31/21 15:54 Temperature 97.9 F Pulse Rate 64 63 65 Respiratory Rate 18 18 18 Blood Pressure 143/78 H 138/89 141/66 H Pulse Oximetry 100 98 98 Oxygen Delivery Method Simple Mask Room Air Room Air Oxygen Flow Rate 6 BMI result Body Mass Index 39.0 Appearance: Alert. Oriented X3. No acute distress. Eyes: Pupils equal, round and reactive to light. ENT: Pharynx normal. Neck: Normal inspection. Neck supple. CVS: Normal heart rate and rhythm. Pulses normal. Respiratory: No respiratory distress. Breath sounds normal. Abdomen: Soft and non-tender. Rectal: brown stool Skin: Skin warm and dry. pale skin color. Normal skin turgor. Extremities: No lower extremity edema. No calf ttp Neuro: Oriented X 3. No motor deficit. No sensory deficit. Course Course Course Narrative: cannot tolerate solids at this time. will call GI Dr. Segovia - patient planned for dilation next Wednesday Dr. Segovia to take for endoscopy tonight anemia but neg guiac hx of anemia in the past denies GIB symptoms at home on BID PPI Medical Decision Making MDM Narrative Medical decision making narrative: 85 yo female with hx of hiatal hernia, COPD, MG on chronic prednisone ate pork r ibs last night and then felt like something was stuck. Vomited overnight, foam emesis with water as well - cannot tolerate solids. Has EGD next Wednesday for dilation with Dr. Segovia post MBS - labs, EKG, consult to GI likely plan for procedure today Lab Data Result diagrams: 10/31/21 10:52 10/31/21 10:52 Labs: Lab Results 10/31/21 10/31/21 10/31/21 Range/Units 10:52 10:52 10:52 WBC 9.8 (4.8-10.8) X10*3/uL RBC 4.28 (4.20-5.50) X10*6/uL Hgb 9.8 L D (12.0-16.0) g/dl Hct 32.5 L (37.0-47.0) % MCV 75.9 L (80.0-98.0) fL MCH 22.9 L (27.0-33.0) pg MCHC 30.2 L (31.0-35.0) g/dl RDW 16.0 (11.0-16.0) % Plt Count 366 (160-400) X10*3/uL MPV 9.7 (9.4-12.3) fL Immature Gran % (Auto) 0.3 (0.0-0.4) % Neut % (Auto) 67.8 (45-73) % Lymph % (Auto) 19.4 L (20-40) % [place] % (Auto) 8.3 (2-11) % Eos % (Auto) 3.3 (0-4) % Baso % (Auto) 0.9 (0-2) % Lymph # (Auto) 1.9 (1.2-4.9) X10*3/uL [place] # (Auto) 0.8 (0.1-1.2) X10*3/uL Eos # (Auto) 0.3 (0.0-0.4) X10*3/uL Baso # (Auto) 0.1 (0.0-0.2) X10*3/uL Abs Immat Gran (auto) 0.03 (0.00-0.03) X10*3/uL Absolute Neuts (auto) 6.6 (2.0-8.3) x10*3/uL Absolute Nucleated RBC 0.000 (0.0-0.012) X10*3/uL Nucleated RBC % (auto) 0.0 (0.0-0.2) /100WBC PT 12.1 (10.0-13.1) SEC INR 1.1 (0.9-1.1) Sodium 139 (135-145) mmol/L Potassium 4.2 (3.3-5.1) mmol/L Chloride 104 (96-108) mmol/L Carbon Dioxide 29 (22-29) mmol/L Anion Gap 10 L (12-20) BUN 23 H (9-16) mg/dL Creatinine 1.12 (0.5-1.4) mg/dL Estim Creat Clear Calc 37.5 Estimated GFR 46 Random Glucose 112 (60-115) mg/dL Calcium 9.8 (8.4-10.2) mg/dL Total Bilirubin 0.6 (0.0-1.0) mg/dL Direct Bilirubin 0.2 (0.0-0.5) mg/dL AST 11 (5-31) U/L ALT 7 (0-31) U/L Alkaline Phosphatase 98 (39-117) U/L Total Protein 6.2 L (6.5-8.0) g/dL Albumin 3.5 (3.5-5.0) g/dL Stool Occult Blood (NEGATIVE) COVID-19 ([facility]) (Negative) COVID-19 Clin Com 10/31/21 10/31/21 Range/Units 10:52 13:15 WBC (4.8-10.8) X10*3/uL RBC (4.20-5.50) X10*6/uL Hgb (12.0-16.0) g/dl Hct (37.0-47.0) % MCV (80.0-98.0) fL MCH (27.0-33.0) pg MCHC (31.0-35.0) g/dl RDW (11.0-16.0) % Plt Count (160-400) X10*3/uL MPV (9.4-12.3) fL Immature Gran % (Auto) (0.0-0.4) % Neut % (Auto) (45-73) % Lymph % (Auto) (20-40) % [place] % (Auto) (2-11) % Eos % (Auto) (0-4) % Baso % (Auto) (0-2) % Lymph # (Auto) (1.2-4.9) X10*3/uL [place] # (Auto) (0.1-1.2) X10*3/uL Eos # (Auto) (0.0-0.4) X10*3/uL Baso # (Auto) (0.0-0.2) X10*3/uL Abs Immat Gran (auto) (0.00-0.03) X10*3/uL Absolute Neuts (auto) (2.0-8.3) x10*3/uL Absolute Nucleated RBC (0.0-0.012) X10*3/uL Nucleated RBC % (auto) (0.0-0.2) /100WBC PT (10.0-13.1) SEC INR (0.9-1.1) Sodium (135-145) mmol/L Potassium (3.3-5.1) mmol/L Chloride (96-108) mmol/L Carbon Dioxide (22-29) mmol/L Anion Gap (12-20) BUN (9-16) mg/dL Creatinine (0.5-1.4) mg/dL Estim Creat Clear Calc Estimated GFR Random Glucose (60-115) mg/dL Calcium (8.4-10.2) mg/dL Total Bilirubin (0.0-1.0) mg/dL Direct Bilirubin (0.0-0.5) mg/dL AST (5-31) U/L ALT (0-31) U/L Alkaline Phosphatase (39-117) U/L Total Protein (6.5-8.0) g/dL Albumin (3.5-5.0) g/dL Stool Occult Blood NEGATIVE (NEGATIVE) COVID-19 ([facility]) Negative (Negative) COVID-19 Clin Com See Note ECG Data Attestation: I personally reviewed and interpreted this ECG as follows: Interpretation: Rate: 67 Rhythm: NSR [place]: left Normal P waves. Normal PAULINA. Normal QRS complex. ST T wave : no HEATH, inverted V1 qTC: normal prior studies: no acute ischemia The study has been interpreted contemporaneously by me. Discharge Plan Discharge Clinical Impression: Esophageal mass Patient Disposition: Admitted As Inpatient Interventions: Admission Worksheet (ED) Last Done: 10/31/21 14:20
[2021-10-31 13:22] LABS: OBS Int Ctl Valid YES; OBS1 NEGATIVE (NEGATIVE)
--- NOTE | 2021-10-31 14:35 | PC.NURSE ---
pt had apple juice and vidal crackers about 1330 in ER per pt and pt daughter Liat. Dr. Segovia and Dr. Kinsey aware.
--- NOTE | 2021-10-31 14:46 | MHC.SHP ---
Pre-Procedural Eval Section A Date of Service: 10/31/21 The patient is an INPATIENT: No Changes since office visit: No Cold of Flu in the past 2 weeks, No New Medical Problems, No Changes in Medication and No Patient answered all questions The History & Physical has been completed within 30 days and I have reviewed it.: Yes Section B Chief Complaint: cant swallow food Details of Present Illness: See dictated consult This is an emergency procedure. Allergies: Allergies Allergy/AdvReac Type Severity Reaction Status Date / Time acetaminophen [From VICODIN] Allergy Unknown UNKNOWN Verified 09/19/21 11:16 hydrocodone [From VICODIN] Allergy Unknown UNKNOWN Verified 09/19/21 11:16 lisinopril [LISINOPRIL] Allergy Unknown ANGIOEDEMA, Verified 09/19/21 11:16 tongue swelling Plan I have reviewed the history and physical and performed a pertinent physical examination on my patient. No changes have occurred unless specified.
--- NOTE | 2021-10-31 16:10 | PM.OP ---
Brief Operative Note Date of Service: 10/31/21 Pre-op diagnosis: dysphagia Post-op diagnosis: other (esophageal mass) Procedure: EGD Surgeon: Leodan Segovia Anesthesia: GETA Was an [employer] used for this Procedure?: No Estimated blood loss (mL): 5 Pathology: other (bxs esophageal mass) Condition: stable Disposition: PACU (Discharge after routine recovery. Followup biopsy results next week as outpatient.)
--- NOTE | 2021-11-01 01:27 | OP_ITS ---
SURGEON: Leodan Segovia MD INDICATIONS: Dysphagia. PREOPERATIVE DIAGNOSIS: POSTOPERATIVE DIAGNOSIS: PROCEDURE PERFORMED: Upper endoscopy with biopsy. ESTIMATED BLOOD LOSS: COMPLICATIONS: ANESTHESIA: Monitored anesthesia care. ASSISTANTS: SPECIMENS: DESCRIPTION OF PROCEDURE: A history and physical was performed. The risks and benefits of the procedure were explained to the patient. Informed consent was obtained. The patient was placed in the left lateral decubitus position. The Olympus video gastroscope was introduced into the esophagus, stomach, and duodenum. Examination was performed. The scope was removed. She tolerated the procedure well and was returned to the recovery area in stable condition. FINDINGS: 1. Esophagus: There was a distal esophageal circumferential mass extending from the EG junction at 36 cm to about 31 cm. The mass was friable and ulcerated and now of the esophageal lumen by approximately 50%. The mass had the appearance of the carcinoma. It extended to and slightly below the EG junction into the proximal stomach by about 1 cm. Biopsies were obtained from the abnormal tissue. There were some food particles seen in association with the mass that were irrigated. There was no obstruction. 2. Stomach: The stomach showed a moderate amount of liquid material and some small food particles. These were irrigated and suctioned. There was a 6 cm hiatal hernia. 3. Duodenum: The bulb and second portion were normal. IMPRESSION: Esophageal mass. RECOMMENDATIONS: Follow up the biopsy results. MD CONNIE Flores/SUKUMAR / [id number]
--- NOTE | 2021-11-01 02:22 | CONS_ITS ---
DATE OF SERVICE: 10/31/2021 REFERRING PHYSICIAN: Dr. Sung REASON FOR CONSULTATION: Acute dysphagia. HISTORY OF PRESENT ILLNESS: The patient is a pleasant 85-year-old woman, well known to me from previous evaluation. She has had problems with recurrent dysphagia and underwent evaluation with a barium swallow in May of this year, which showed a moderate-sized hiatal hernia with mild reflux, but otherwise, unremarkable barium swallow. She presented to the emergency room today with acutely worsening dysphagia after eating pork ribs last night, that her daughter had made. While at a concert, she developed obstructive symptoms and had vomiting at that time and today reports continued difficulty swallowing. She reportedly vomited a small amount of meat in the emergency department according to her daughter. PAST MEDICAL HISTORY: 1. Soriano esophagus. 2. Gastritis. 3. Gastroesophageal reflux disease. 4. Right nephrectomy. 5. Hypertension. 6. Elevated cholesterol. 7. COPD. 8. Myasthenia gravis. 9. Overactive bladder. CURRENT MEDICATIONS: Her current medication list is reviewed in the chart. ALLERGIES: MULTIPLE MEDICATION ALLERGIES ARE REVIEWED. FAMILY HISTORY: This is reviewed with the patient and is noncontributory. SOCIAL HISTORY: There is no current tobacco, alcohol, or substance abuse. REVIEW OF SYSTEMS: SKIN: No pruritus. HEENT: Negative. CARDIOPULMONARY: No shortness of breath or chest pain. GASTROINTESTINAL: As above. GENITOURINARY: Negative. NEUROPSYCHIATRIC: Negative. PHYSICAL EXAMINATION: GENERAL: Shows a pleasant female, lying comfortably in bed. VITAL SIGNS: Reviewed in the electronic medical record and are stable. SKIN: Anicteric. HEENT: Shows no scleral icterus. NECK: Without lymphadenopathy or thyromegaly. LUNGS: Clear. HEART: Shows a regular rate and rhythm. S1, S2. No murmur. ABDOMEN: Soft without focal masses or tenderness. Bowel sounds are present. No organomegaly is noted. EXTREMITIES: Without edema. IMPRESSION: My is that she may have a possible esophageal obstruction from the food she ate last night. She was able to swallow some liquids by report in the emergency department, so this may be a partial obstruction. I have discussed endoscopy with her including risks and benefits. This will be arranged for later today. Thanks for asking me to see her. I will follow her as needed. MD CONNIE Flores/SUKUMAR / [id number]
== END 2021-10-31 16:25 | disposition home or self-care (01) ==
LOC: HO.ED 14:20 → HO.SSS 15:51
PROVIDERS: Emergency Provider Emergency Medicine; PCP Internal Medicine; Visit Provider Internal Medicine Gastroenterology
PROC: 0DJ08ZZ Inspection of Upper Intestinal Tract, Via Natural or Artificial Opening Endoscopic (ICD-10-PCS; CPT 43235; principal; 2021-10-31 13:30)
DX: C15.5 Malignant neoplasm of lower third of esophagus (principal); K44.9 Diaphragmatic hernia without obstruction or gangrene; G70.00 Myasthenia gravis without (acute) exacerbation; J44.9 Chronic obstructive pulmonary disease, unspecified; Z20.822 Contact with and (suspected) exposure to COVID-19; I10 Essential (primary) hypertension; E78.5 Hyperlipidemia, unspecified; K21.9 Gastro-esophageal reflux disease without esophagitis; Z87.891 Personal history of nicotine dependence; Z88.8 Allergy status to other drugs, medicaments and biological substances; Z79.51 Long term (current) use of inhaled steroids; Z79.899 Other long term (current) drug therapy; Z79.02 Long term (current) use of antithrombotics/antiplatelets
CPT/HCPCS: 43239; 36415; 71045; 80048; 80076; 82272; 85025; 85610; 87635; 88305; 88341; 88342; 88360; 93005; 99285; J1100; J2405

== ENCOUNTER → 2021-11-10 10:49 | Outpatient (BNV) | payer MEDICARE, SELFPAY | PROVIDERS: PCP Internal Medicine; Referring Provider Internal Medicine; Visit Provider Internal Medicine | DX: C15.5 Malignant neoplasm of lower third of esophagus (principal) | CPT/HCPCS: 99205; 99213; 99214 ==

== ENCOUNTER 2021-11-18 08:59 | Outpatient (REF) | payer MEDICARE, SELFPAY ==
--- NOTE | ~2021-11-18 | PE_ITS ---
EXAMINATION: Fluorine-18 FDG PET/CT Scan CLINICAL INDICATION: Initial treatment management. Malignant neoplasm of esophagus. PROCEDURE: 66 minutes following the intravenous administration of 12.6 mCi of fluorine 18 FDG, images from the base of the skull to the mid thighs were obtained using a combined PET/CT scanner with CT scan based attenuation correction. No oral contrast was administered. No intravenous contrast was administered. Transverse, coronal, sagittal, and volume reconstruction projections were obtained. The patient's blood glucose as determined by a finger stick, was 99 mg/dl immediately prior to injection. Total CT exam dose-length product 599.40 mGy-cm * These CT images were obtained using dose optimization techniques as appropriate, variously including the following: Automated exposure control * Adjustment of mA and/or kV according to patient size (this includes techniques or standardized protocols for targeted exams where dose is matched to indication/reason for exam; i.e. extremities or head) * Use of iterative reconstruction technique COMPARISON: No previous PET/CT scan is available for comparison. CT scan of the chest dated 10/18/[address] scan of the abdomen and pelvis dated 04/10/2007 are available for comparison. FINDINGS: (Slice numbers described in this report are numbered superiorly to inferiorly with slice #1 in the head) NECK AND VISUALIZED HEAD: There is intense abnormally increased activity right-sided thyroid nodule, SUVmax 9.9, slice 57/267. This corresponds to a solid nodule on the CT images measuring 3.0 x 2.4 cm in largest transverse dimensions and approximately 3.2 cm cephalocaudad. No other foci of abnormal FDG activity are present in the neck or visualized head. There is no cervical lymphadenopathy. The cerebral ventricles are moderately dilated, and this appears to be out of proportion to the peripheral volume loss. Dense calcifications bilaterally in the medial mastoid regions are likely due to incidental exostoses. THORAX: There is intense abnormal FDG activity in the inferior third of the esophagus were a moderately sized hiatal hernia is present. This shows SUVmax 16.7, slice 99/267 and this FDG activity is associated with moderate wall thickening in the visualized distal esophagus. No additional foci of abnormal FDG activity are present in the chest. No suspicious pulmonary nodules are visualized. Small subcentimeter peribronchial nodules seen in the left upper lobe and right middle lobe on the 10/18/[address] scan are not visualized on these nondiagnostic CT images. There is no mediastinal, supraclavicular, or axillary lymphadenopathy. There is no pleural or pericardial fluid, or pneumothorax. ABDOMEN AND PELVIS: There is weak FDG activity associated with a left adrenal nodule, SUVmax 2.4, slice 122/267. This measures 1.9 x 1.3 cm in largest transverse dimensions and this is similar in appearance to the 10/18/2017 CT scan of the chest as well as a much less recent CT scan of the abdomen and pelvis dated 04/10/2007. There is mild FDG activity throughout the gastrointestinal tract without a suspicious focal component, likely physiological. There is diverticulosis without evidence of diverticulitis. The hollow viscera are otherwise unremarkable. The liver, gallbladder, and spleen are unremarkable. The right kidney is absent, a chronic finding dating back to 04/10/2007 and the left kidney is unremarkable. The right adrenal gland is unremarkable. The pancreas is atrophic but otherwise unremarkable. There is no retroperitoneal, mesenteric, pelvic or inguinal lymphadenopathy. The pelvic organs are unremarkable. MUSCULOSKELETAL: There are no foci of abnormal FDG activity in the osseous structures. There are diffuse degenerative changes in the spine. A compression deformities in the T8 and T12 vertebral bodies with no associated abnormal FDG activity. The T12 compression fracture is chronic and was visible on the 04/10/2008 CT right the T8 compression fracture was not present on the more recent 10/18/2017 CT scan of the chest. A dense 1 cm sclerotic focus in the right side of the T7 vertebral body is chronic, visualized on the 08/19/2020 radiographs of the thoracic spine. There are no suspicious sclerotic or lytic lesions visualized. VASCULAR: Diffuse vascular calcifications including coronary. PET/PET CT fusion skull to thigh IMPRESSION: 1. Intense abnormal FDG activity in the distal esophagus associated with a moderate hiatal hernia is consistent with the known diagnosis of esophageal malignancy. 2. 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 This could be further characterized with ultrasound-guided fine-needle aspirate, if clinically indicated. 3. No additional abnormalities suspicious for metastatic or other malignant lesions are noted. 4. 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 Clinical correlation for findings of the latter is suggested, and these may be better characterized with brain MRI, if clinically indicated. 5. Absent right kidney. 6. Compression fractures at T8 and T12 are nonacute, with no evidence of abnormal FDG activity. However, the T8 compression fracture was not visible on the 08/19/2020 radiographs. 7. Diffuse vascular calcifications including coronary.
== END 2021-11-18 09:00 | disposition home or self-care (01) ==
LOC: HO.PET 08:59
PROVIDERS: PCP Internal Medicine; Visit Provider Internal Medicine
DX: Z13.89 Encounter for screening for other disorder (principal)

== ENCOUNTER → 2022-03-03 11:15 | Outpatient (BNVA) | payer MEDICARE, SELFPAY | PROVIDERS: PCP Internal Medicine; Visit Provider Internal Medicine | DX: G70.00 Myasthenia gravis without (acute) exacerbation (principal); J44.9 Chronic obstructive pulmonary disease, unspecified | CPT/HCPCS: 99212 ==

== ENCOUNTER 2022-06-27 09:05 | Emergency (ER) | payer MEDICARE, SELFPAY ==
--- NOTE | ~2022-06-27 | CT_ITS ---
EXAMINATION: CT SOFT TISSUE NECK WITH CONTRAST CLINICAL INFORMATION: Left-sided neck pain. PET/CT exam indicates prior history of esophageal cancer. COMPARISON: Previous head CT most recent March 2022 TECHNIQUE: Following the intravenous administration of 60 mL of Omnipaque 350 intravenous contrast, helical imaging was performed in the axial plane with generation of coronal and sagittal reformatted images. This CT examination was performed using dose optimization techniques as appropriate, variously including the following: *Automated exposure control *Adjustment of mA and/or kV according to patient size (this includes techniques or standardized protocols for targeted exams where dose is matched to indication/reason for exam; i.e. extremities or head) *Use of iterative reconstruction technique DLP: 401 mGy-cm FINDINGS: Multiple right thyroid nodules, largest measuring 2.5 cm in length. This could be further evaluated with thyroid ultrasound if there are no comorbidities due to advanced age and history of esophageal cancer. The naso, cecille-and hypopharynx are normal. There are no enlarged lymph nodes. The salivary glands are normal. There is a small polyp or cyst in the left maxillary sinus. Otherwise visualized paranasal sinuses mastoid air cells and middle ears are otherwise clear. Visualized intracranial structures are unremarkable. Vascular structures are normal. There is a 3 mm nodule in the right upper lobe axial image 101 series 2. This is new from previous PET/CT scan. The visualized mid thoracic esophagus appears slightly distended with question mild wall thickening and and contains central soft tissue. When compared with previous PET/CT from 2022 this is not appreciably changed. There is degenerative change of the cervical spine. CT/CT soft tissue neck w IV con IMPRESSION: Multiple right thyroid nodules. By size criteria, ultrasound follow-up is warranted if there are no comorbidities due to advanced age and esophageal cancer. Multilevel degenerative changes of the spine. Abnormal appearance to the mid thoracic esophagus, not appreciably changed from previous PET/CT March 2022. 3 mm right upper lobe nodule. This is new from PET/CT March 2022. Follow-up as per protocol.
--- NOTE | ~2022-06-27 | XR_ITS ---
EXAMINATION: XR CHEST CLINICAL INFORMATION: Cough COMPARISON: PET CT April 07, 2022 and chest x-ray October 31, 2021 TECHNIQUE: Frontal view of the chest was obtained. FINDINGS: Cardiac silhouette is normal in size. The lungs are mildly hypoinflated. Subtle left basilar opacity is nonspecific but most suggestive of atelectasis. Blunting of both costophrenic angles appears to be chronic and likely represents scarring. There is no pneumothorax. Degenerative changes of the spine. XR/XR chest 1V IMPRESSION: Subtle left basilar opacity is nonspecific but most suggestive of atelectasis.
[2022-06-27 09:09] VITALS: BP 144/62; PULSE 94; RESP 20; TEMP 37.1; O2SAT 94; BMI 26.5
--- NOTE | 2022-06-27 10:07 | ECG_ITS ---
Test Reason : NECK PAIN TO EAR Blood Pressure : / mmHG Vent. Rate : 081 BPM Atrial Rate : 081 BPM P-R Int : 182 ms QRS Dur : 066 ms QT Int : 376 ms P-R-T Axes : 060 -11 036 degrees QTc Int : 436 ms Normal sinus rhythm Low voltage QRS Septal infarct , age undetermined Abnormal ECG When compared with ECG of 31-OCT-2021 11:55, Septal infarct is now Present Referred By: Annabelle Rodrigues Electronically Signed By:TED SKY
--- NOTE | 2022-06-27 10:12 | ED_ITS ---
HPI - General Adult General Chief complaint: General Medical Stated complaint: l sided neck and ear pain Time Seen by Provider: 06/27/22 09:46 Source: patient Mode of arrival: ambulatory Limitations: no limitations History of Present Illness HPI narrative: This is an 86-year-old female with history of esophageal cancer status post chemo and radiation currently in remission, hypertension, COPD, myasthenia gravis, hypothyroidism who presents the ER with complaints of 1 week of left- sided neck pain with radiation to the ear with no known injury or trauma. Patient denies any difficulty breathing, difficulty swallowing, cough, fever, tinnitus, itching from the ear, drainage from the ear, sore throat. Related Data Home Medications Medication Instructions Recorded Confirmed albuterol sulfate 90 mcg/actuation 2 puff inhalation Q4H PRN Wheezing 06/27/20 06/24/22 aerosol inhaler furosemide 40 mg tablet 40 mg PO DAILY PRN Edema 06/27/20 06/24/22 levothyroxine 88 mcg tablet 88 mcg PO DAILY 06/27/20 06/24/22 metoprolol succinate 50 mg 50 mg PO DAILY 06/27/20 06/24/22 tablet,extended release 24 hr omeprazole 20 mg capsule,delayed 40 mg PO DAILY 06/27/20 06/24/22 release simvastatin 10 mg tablet 10 mg PO BEDTIME 06/27/20 06/24/22 prednisone 1 mg tablet 1 tab PO DAILY 10/31/21 06/24/22 Previous Rx's Medication Instructions Recorded lorazepam 0.5 mg tablet 0.5 mg PO BID PRN Anxiety #5 tabs 11/11/21 fluticasone 250 mcg-salmeterol 50 1 ea PO BID #180 ea 03/12/22 mcg/dose blistr powdr for inhalation ferrous sulfate 325 mg (65 mg 325 mg PO DAILY #60 tabs 05/29/22 iron) tablet gabapentin 100 mg capsule 300 mg PO BID #180 caps 05/29/22 sennosides 8.6 mg-docusate sodium 1 tab-cap PO BEDTIME #30 tabs 05/29/22 50 mg tablet (Senna with Docusate Sodium) cyclobenzaprine 5 mg tablet 5 mg PO TID PRN muscle spasm #10 06/27/22 tabs doxycycline monohydrate 100 mg 100 mg PO BID #14 caps 06/27/22 capsule lidocaine 5 % topical patch 1 patch topical DAILY #15 ea 06/27/22 (Lidoderm) Allergies Allergy/AdvReac Type Severity Reaction Status Date / Time acetaminophen [From VICODIN] Allergy Unknown UNKNOWN Verified 06/24/22 09:46 hydrocodone [From VICODIN] Allergy Unknown UNKNOWN Verified 06/24/22 09:46 lisinopril [LISINOPRIL] Allergy Unknown ANGIOEDEMA, Verified 06/24/22 09:46 tongue swelling Review of Systems Review of Systems: Yes all other systems are reviewed and are negative Constitutional: Constitutional: Reports no additional constitutional complaints, Denies body ache(s), Denies chills, Denies fever(s), Denies headache(s) and Denies weakness Eyes: Eyes: Reports no additional eye complaints and Denies change in vision ENT: Reports system reviewed and no additional complaints, except as documented, Denies dizziness, Reports otalgia, Denies headache(s), Denies nasal congestion, Denies nasal discharge and Reports neck pain Cardiovascular: Cardiovascular: Reports no additional cardiovascular complaints, Denies chest pain, Denies leg edema and Denies dyspnea Respiratory: Respiratory: Reports no additional respiratory complaints, Denies cough and Denies dyspnea Gastrointestinal: Gastrointestinal: Reports no additional gastrointestinal complaints, Denies abdominal pain, Denies diarrhea, Denies nausea and Denies vomiting Genitourinary: Genitourinary: Reports no additional female genitourinary complaints and Denies urinary incontinence Musculoskeletal: Musculoskeletal: Reports no additional musculoskeletal complaints, Denies back pain, Denies arthralgias, Denies joint swelling, Reports neck pain, Denies numbness and Denies tingling Integumentary/Breasts: Skin/Breast: Reports system reviewed and no additional complaints, except as docu and Denies rash Neurologic: Reports system reviewed and no additional complaints, except as documented, Denies dizziness, Denies headache(s), Denies numbness, Denies tingling and Denies weakness PMFSH Past Medical History Attestation statement: The following information was validated with the patient. Source: old records reviewed and nursing notes reviewed Medical History Asthma COPD (chronic obstructive pulmonary disease) Myasthenia gravis Skin lesion of neck Surgical History H/O right nephrectomy Family History Family History Mother Alzheimer disease Father Parkinson disease Social History Social History Household Members: None Housing: House Patient Tobacco Use Status: Former Tobacco user Advance Directives: Yes Advance Directives on File: Yes Advance Directives Date on File: 10/31/21 service: No Current occupational status: retired Physical Exam ED Vital Signs: Vital Signs - 24 hr 06/27/22 09:09 Temperature 98.8 F Pulse Rate 94 Respiratory Rate 20 Blood Pressure 144/62 H Pulse Oximetry 94 Oxygen Delivery Method Room Air BMI result Body Mass Index 26.5 Const General: cooperative, healthy appearing, comfortable and no acute distress Orientation/consciousness: patient oriented x3 Limitations: no limitations HENMT Head: Yes normal to inspection Ears: hearing grossly normal bilaterally, TM's normal bilaterally, mastoids normal and no periauricular adenopathy General nose exam: Normal external nose present Face and sinus: Yes normal facial exam Mouth: Normal oral and palatal mucosa present Throat: Yes posterior oropharynx normal, Yes tonsils normal and Yes uvula midline Eyes General: appearance normal, both eyes and all related structures Pupils: Equal, round and reactive pupils present Neck Other: There is tenderness on palpation over the left trapezius/soft tissue of the left side of the neck with no thrill or bruit. Pain is worsened with flexion extension of the spine as well as rotation. Patient with palpable muscle spasm which is worsened with movement of the head Neck: Yes normal visual inspection, Yes full ROM, Yes no lymphadenopathy and Yes no meningeal signs Chest Chest palpation & inspection: normal inspection of the chest Resp Effort & Inspection: normal respiratory effort Auscultation: clear to auscultation bilaterally Cardio Rate: regular rate Rhythm: regular rhythm Peripheral pulses: Peripheral pulses 2+ throughout GI Inspection: Yes normal to inspection Palpation (GI): Soft to palpation and nontender General: Yes no CVA tenderness Back/Spine/Pelvis Back: no CVA tenderness Thoracic/Lumbar Spine: thoracic and lumbar spine normal to inspection Skin General skin exam: no rashes or lesions noted Neuro General: patient oriented x3, moves all extremities and no meningeal signs Cranial nerves: Yes Equal, round and reactive pupils present, Yes Bilaterally intact EOM present, Yes Nystagmus not present, Yes Normal facial strength present and Yes Midline tongue present Cognition (Neuro): normal cognition Motor exam (neuro): 5/5 motor strength present throughout Sensory Exam: Normal double simultaneous stimulation for sensation Extrem General: Yes normal to inspection, Yes no pedal edema and Yes no calf tenderness Course Course Course Narrative: I did discuss this with my attending physician. We decided to obtain a CT soft tissue of neck with IV contrast to rule out any mass or malignancy Reevaluation(s) Reevaluation #1: CT of the neck shows several incidental findings which were reviewed with the family at the bedside and they were tried with a copy of the report. Additional labs, EKG are normal. Recommend patient follow-up with her oncologist. Family is concerned the patient may have a productive cough and has had history of pneumonia. Lungs are clear. Saturations are stable. Patient appears well. Will check x-ray of the chest. Family does not want a wait until results are back. I will send her home with a course of antibiotics in the meantime. Reevaluation #2: 1500-I did try to call the daughter with the results of the x-ray [phone]. She did not answer. I left her a voicemail with our callback information Medications Administered Discontinued Medications Generic Name Dose Route Start Last Admin Trade Name Tia PRN Reason Stop Dose Admin Cyclobenzaprine HCl 5 mg 06/27/22 10:09 06/27/22 11:05 Cyclobenzaprine Hcl 5 Mg Tablet PO 06/27/22 10:10 5 mg ONCE ONE Administration Iohexol 60 ml 06/27/22 12:01 06/27/22 12:02 Iohexol 350 Mg/Ml 75 Ml Infus..Btl IV 06/27/22 12:02 60 ml ONCE ONE Administration Ketorolac Tromethamine 15 mg 06/27/22 10:08 06/27/22 11:05 Ketorolac Tromethamine 15 Mg/Ml Vial IVPUSH 06/27/22 10:09 15 mg ONCE ONE Administration Medical Decision Making Medical Decision Making MDM Narrative: This is an 86-year-old female with a history of esophageal cancer status post chemo and radiation currently in remission reportedly who presents to the ER with atraumatic left-sided neck pain with radiation to the ear for the last 1 week. Patient denies any difficulty swallowing, difficulty breathing, fevers, chills, tinnitus, ear itching or drainage. No recent coughs or colds. On exam patient tenderness over the left trapezius and soft tissue with no midline tenderness, step-offs or deformities. No meningeal signs or lymphadenopathy. Your has normal appearance with no mastoid tenderness or periauricular lymphadenopathy. Normal neuro exam. Seems more muscular. Patient will get labs, imaging of the neck, EKG Will provide analgesia Differential Diagnosis Differential Diagnoses: The differential diagnosis associated with the presen tation includes No difficulty swallowing, difficulty breathing, chest pain, vomiting, weight loss, night sweats, fevers to suggest ongoing malignancy Cervical spasm/torticollis Consider ACS, low concern for fracture Lab Data MDM Lab Attestation statement: I reviewed the patient's lab results. 06/27/22 10:21 06/27/22 10:21 Labs: Lab Results 06/27/22 06/27/22 06/27/22 Range/Units 10:21 10:21 10:21 WBC 9.4 (4.8-10.8) X10*3/uL RBC 4.16 L (4.20-5.50) X10*6/uL Hgb 11.1 L (12.0-16.0) g/dl Hct 35.1 L (37.0-47.0) % MCV 84.4 (80.0-98.0) fL MCH 26.7 L (27.0-33.0) pg MCHC 31.6 (31.0-35.0) g/dl RDW 15.5 (11.0-16.0) % Plt Count 329 D (160-400) X10*3/uL MPV 9.3 L (9.4-12.3) fL Immature Gran % (Auto) 0.4 (0.0-0.4) % Neut % (Auto) 78.6 H (45-73) % Lymph % (Auto) 9.4 L (20-40) % George % (Auto) 8.2 (2-11) % Eos % (Auto) 2.8 (0-4) % Baso % (Auto) 0.6 (0-2) % Lymph # (Auto) 0.9 L (1.2-4.9) X10*3/uL George # (Auto) 0.8 (0.1-1.2) X10*3/uL Eos # (Auto) 0.3 (0.0-0.4) X10*3/uL Baso # (Auto) 0.1 (0.0-0.2) X10*3/uL Abs Immat Gran (auto) 0.04 H (0.00-0.03) X10*3/uL Absolute Neuts (auto) 7.4 (2.0-8.3) x10*3/uL Absolute Nucleated RBC 0.000 (0.0-0.012) X10*3/uL Nucleated RBC % (auto) 0.0 (0.0-0.2) /100WBC Sodium 139 (135-145) mmol/L Potassium 3.8 (3.3-5.1) mmol/L Chloride 102 (96-108) mmol/L Carbon Dioxide 29 (22-29) mmol/L Anion Gap 12 (12-20) BUN 31 H (9-16) mg/dL Creatinine 1.19 (0.5-1.4) mg/dL Estim Creat Clear Calc 32.0 Estimated GFR 43 Random Glucose 111 (60-115) mg/dL Calcium 9.2 D (8.4-10.2) mg/dL Total Bilirubin 0.5 (0.0-1.0) mg/dL Direct Bilirubin < 0.2 (0.0-0.5) mg/dL AST 12 (5-31) U/L ALT 9 (0-31) U/L Alkaline Phosphatase 111 (39-117) U/L Troponin I High Sens < 3.5 (<3.5-17.0) ng/L Total Protein 6.2 L (6.5-8.0) g/dL Albumin 3.2 L (3.5-5.0) g/dL Independent Interpretation I performed an independent interpretation of an: Plain X-Ray and CT Scan Interpretation: Independently reviewed the CT of the neck, the chest x-ray and agree with radiologist's report Radiology Impression Discussion of test interpretation with radiology: I have reviewed the radiologist's reading. Radiologist Impression: [address] [address] [address] Scan Report Signed Patient: Lorri Skinner MR#: [id number] : 1935 Acct:[id number] Age/Sex: 86 / F ADM Date: 06/27/22 Loc: HO.ED Attending Dr: Ordering Physician: Annabelle Ortez NP Date of Service: 06/27/22 Procedure(s): CT soft tissue neck w IV con Accession Number(s): [id number] cc: Annabelle Ortez NP~ EXAMINATION: CT SOFT TISSUE NECK WITH CONTRAST CLINICAL INFORMATION: Left-sided neck pain. PET/CT exam indicates prior history of esophageal cancer. COMPARISON: Previous head CT most recent March 2022? ? TECHNIQUE: Following the intravenous administration of 60 mL of Omnipaque 350 intravenous contrast, helical imaging was performed in the axial plane with generation of coronal and sagittal reformatted images. This CT examination was performed using dose optimization techniques as appropriate, variously including the following: *Automated exposure control *Adjustment of mA and/or kV according to patient size (this includes techniques or standardized protocols for targeted exams where dose is matched to indication/reason for exam; i.e. extremities or head) *Use of iterative reconstruction technique DLP: 401 mGy-cm FINDINGS: Multiple right thyroid nodules, largest measuring 2.5 cm in length. This could be further evaluated with thyroid ultrasound if there are no comorbidities due to advanced age and history of esophageal cancer. The naso, cecille-and hypopharynx are normal. There are no enlarged lymph nodes. The salivary glands are normal. There is a small polyp or cyst in the left maxillary sinus. Otherwise visualized paranasal sinuses mastoid air cells and middle ears are otherwise clear. Visualized intracranial structures are unremarkable. Vascular structures are normal. There is a 3 mm nodule in the right upper lobe axial image 101 series 2. This is new from previous PET/CT scan. The visualized mid thoracic esophagus appears slightly distended with question mild wall thickening and and contains central soft tissue. When compared with previous PET/CT from 2022 this is not appreciably changed. There is degenerative change of the cervical spine. CT/CT soft tissue neck w IV con IMPRESSION: Multiple right thyroid nodules. By size criteria, ultrasound follow-up is warranted if there are no comorbidities due to advanced age and esophageal cancer. Multilevel degenerative changes of the spine. Abnormal appearance to the mid thoracic esophagus, not appreciably changed from previous PET/CT March 2022. 3 mm right upper lobe nodule. This is new from PET/CT March 2022. Follow-up as per protocol.? ? [address] [address] XRay Report Signed Patient: Lorri Skinner MR#: [id number] : 1935 Acct:[id number] Age/Sex: 86 / F ADM Date: 06/27/22 Loc: HO.ED Attending Dr: Ordering Physician: Annabelle Ortez NP Date of Service: 06/27/22 Procedure(s): XR chest 1V Accession Number(s): [id number] cc: Annabelle Ortez NP~ EXAMINATION: XR CHEST CLINICAL INFORMATION: Cough COMPARISON: PET CT April 07, 2022 and chest x-ray October 31, 2021 TECHNIQUE: Frontal view of the chest was obtained. FINDINGS: Cardiac silhouette is normal in size. The lungs are mildly hypoinflated. Subtle left basilar opacity is nonspecific but most suggestive of atelectasis. Blunting of both costophrenic angles appears to be chronic and likely represents scarring. There is no pneumothorax. Degenerative changes of the spine. XR/XR chest 1V IMPRESSION: Subtle left basilar opacity is nonspecific but most suggestive of atelectasis. ? Independent Historian +daughter Discharge Plan Discharge Clinical Impression: Acute torticollis, Cough Patient Disposition: Home, Self-Care Instructions: Acute Cough (ED), Neck Pain (ED) Additional Instructions: Your CT scan shows incidental findings of several thyroid nodules and a right upper lobe lung nodule. These will need to be followed up by your primary care doctor and her oncologist and you may need additional imaging performed. 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 Your lab work was all normal Please follow-up with your oncologist outpatient Please return for any worsening symptoms Continue Motrin or Tylenol at home Prescriptions: New doxycycline monohydrate 100 mg capsule 100 mg PO BID Qty: 14 0RF cyclobenzaprine 5 mg tablet 5 mg PO TID PRN (Reason: muscle spasm) Qty: 10 0RF lidocaine [Lidoderm] 5 % adhesive patch,medicated 1 patch topical DAILY Qty: 15 0RF Rx Instructions: leave on most painful area for up to 12 hrs No Action fluticasone propion-salmeterol 250-50 mcg/dose blister with device 1 ea PO BID Qty: 180 0RF lorazepam 0.5 mg Tablet 0.5 mg PO BID PRN (Reason: Anxiety) Qty: 5 0RF sennosides-docusate sodium [Senna with Docusate Sodium] 8.6-50 mg Tablet 1 tab-cap PO BEDTIME Qty: 30 3RF ferrous sulfate 325 mg (65 mg iron) Tablet 325 mg PO DAILY Qty: 60 3RF gabapentin 100 mg Capsule 300 mg PO BID Qty: 180 3RF prednisone 1 mg tablet 1 tab PO DAILY albuterol sulfate 90 mcg/actuation HFA aerosol inhaler 2 puff inhalation Q4H PRN (Reason: Wheezing) simvastatin 10 mg tablet 10 mg PO BEDTIME metoprolol succinate 50 mg tablet extended release 24 hr 50 mg PO DAILY omeprazole 20 mg capsule,delayed release(DR/EC) 40 mg PO DAILY furosemide 40 mg tablet 40 mg PO DAILY PRN (Reason: Edema) levothyroxine 88 mcg tablet 88 mcg PO DAILY Interventions: ED Discharge Assessment Last Done: 06/27/22 13:36 Discharge Date/Time: 06/27/22 13:36
[2022-06-27 10:34] LABS: MANUAL DIFF FLAG NO
[2022-06-27 10:38] LABS: Basophils Absolute Auto 0.1 X10*3/uL (0.0-0.2); Basophils Percent Auto 0.6 % (0-2); Eosinophils Absolute Auto 0.3 X10*3/uL (0.0-0.4); Eosinophils Percent Auto 2.8 % (0-4); Hematocrit 35.1 % (37.0-47.0); Hemoglobin 11.1 g/dl (12.0-16.0); Imm Gran Abs Auto 0.04 X10*3/uL (0.00-0.03); Imm Gran Pct Auto 0.4 % (0.0-0.4); Lymphocytes Absolute Auto 0.9 X10*3/uL (1.2-4.9); Lymphocytes Percent Auto 9.4 % (20-40); Mean Corpuscular HGB Conc 31.6 g/dl (31.0-35.0); Mean Corpuscular Hemoglobin 26.7 pg (27.0-33.0); Mean Corpuscular Volume 84.4 fL (80.0-98.0); Mean Platelet Volume 9.3 fL (9.4-12.3); Monocytes Absolute Auto 0.8 X10*3/uL (0.1-1.2); Monocytes Percent Auto 8.2 % (2-11); Neutrophils Absolute Auto 7.4 x10*3/uL (2.0-8.3); Neutrophils Percent Auto 78.6 % (45-73); Platelet Count 329 X10*3/uL (160-400); Red Blood Count 4.16 X10*6/uL (4.20-5.50); Red Cell Distribution Width 15.5 % (11.0-16.0); White Blood Count 9.4 X10*3/uL (4.8-10.8)
[2022-06-27 10:52] LABS: Alanine Aminotransferase 9 U/L (0-31); Albumin Level 3.2 g/dL (3.5-5.0); Alkaline Phosphatase 111 U/L (39-117); Anion Gap 12 (12-20); Aspartate Amino Transferase 12 U/L (5-31); Bilirubin Direct < 0.2 mg/dL (0.0-0.5); Bilirubin Total 0.5 mg/dL (0.0-1.0); Blood Urea Nitrogen 31 mg/dL (9-16); Calcium 9.2 mg/dL (8.4-10.2); Carbon Dioxide 29 mmol/L (22-29); Chloride 102 mmol/L (96-108); Estimated Glomerular Filt Rate 43; Glucose Random 111 mg/dL (60-115); Potassium 3.8 mmol/L (3.3-5.1); Sodium 139 mmol/L (135-145); Total Protein 6.2 g/dL (6.5-8.0)
[2022-06-27 11:00] LABS: Troponin-I High Sensitivity < 3.5 ng/L (<3.5-17.0)
[2022-06-27] MEDS: Cyclobenzaprine HCl 5 MG TABLET PO (11:05)
[2022-06-27] MEDS: Ketorolac Tromethamine 15 MG/ML VIAL IVPUSH (11:05)
--- NOTE | 2022-06-27 11:46 | PC.NURSE ---
patient sitting in her wheelchair-daughter with her. pending CT scan. able to make needs known. call bucio within reach
[2022-06-27] MEDS: iohexoL 350 MG/ML 75 ML INFUS..BTL 60 ML IV (12:02)
== END 2022-06-27 13:36 | disposition home or self-care (01) ==
PROVIDERS: Nurse Practitioner Family; Emergency Provider Emergency Medicine; PCP Internal Medicine
DX: M43.6 Torticollis (principal); R05.9 Cough, unspecified; I10 Essential (primary) hypertension; Z85.01 Personal history of malignant neoplasm of esophagus; Z79.02 Long term (current) use of antithrombotics/antiplatelets; Z79.899 Other long term (current) drug therapy
CPT/HCPCS: 36415; 70491; 71045; 80048; 80076; 84484; 85025; 93005; 96374; 99284; J1885; Q9967

== ENCOUNTER 2022-07-21 09:37 | Outpatient (REF) | payer MEDICARE, SELFPAY ==
--- NOTE | ~2022-07-21 | CT_ITS ---
EXAMINATION: CT CHEST WITH CONTRAST CLINICAL INFORMATION: Esophageal cancer. Check response to chemotherapy. COMPARISON: Previous chest CT from 2018 and PET/CT scan March 2022 TECHNIQUE: Multidetector volumetric CT imaging of the chest was obtained after the administration of 65 mL of Omnipaque 350 intravenous contrast without immediate adverse reactions. Axial MIP volume rendering provided. Sagittal and coronal reformatted images were obtained. This CT examination was performed using dose optimization techniques as appropriate, variously including the following: *Automated exposure control *Adjustment of mA and/or kV according to patient size (this includes techniques or standardized protocols for targeted exams where dose is matched to indication/reason for exam; i.e. extremities or head) *Use of iterative reconstruction technique DLP: 190 mGy-cm FINDINGS: LUNGS: There is a new 4 mm left upper lobe nodule axial image 40 series 7. There is a new 4 mm left upper lobe nodule axial image 55 series 7. Other more central of smaller left upper lobe nodule seen on September 2017 exam are no longer seen. There is a new 4 mm left lower lobe nodule axial image 107 series 7. Small pulmonary nodules are otherwise stable. There is scarring or chronic subsegmental atelectasis at the lung bases. MEDIASTINUM: There are stable postsurgical changes following esophagectomy and gastric. There is a right thyroid nodule that measures 2 cm. This demonstrated increased uptake on recent PET CT scan March 2022. Normal heart size. Mild coronary artery calcification. No pericardial effusion. No enlarged hilar or mediastinal nodes. PLEURA: There is no pleural effusion. No pleural mass or thickening. AXILLA: No lymphadenopathy. UPPER ABDOMEN: Stable 1.5 x 1.8 cm left adrenal nodule. Atrophic changes of the pancreas. OSSEOUS STRUCTURES: T8 and T12 vertebral body compression fractures similar to PET CT scan. Sclerotic lesion in the T7 vertebral body stable. This did not show increased uptake on PET CT scan and may represent a bone island. Arthritis at the left shoulder joint. CT/CT chest w IV con IMPRESSION: Several new left upper and left lower lobe nodules. There are some previously identified more central left upper lobe nodules that were seen on [address] that are no longer seen. Infectious, inflammatory and neoplastic processes should be considered. Chest CT follow-up as per protocol. Stable postsurgical changes following esophagectomy. Stable left adrenal nodule. Right thyroid nodule. This has increased uptake on PET CT scan. Follow-up thyroid ultrasound and fine-needle aspiration should be considered if clinically indicated given patient's advanced age. Fleischner guidelines were followed.
[2022-07-21] MEDS: iohexoL 350 MG/ML 100 ML INFUS..BTL IV (10:29)
== END 2022-07-21 09:38 | disposition home or self-care (01) ==
LOC: HO.CT 09:37
PROVIDERS: Visit Provider Internal Medicine
DX: C15.5 Malignant neoplasm of lower third of esophagus (principal)
CPT/HCPCS: 71260; Q9967

== ENCOUNTER → 2022-09-10 13:38 | Outpatient (BNVA) | payer MEDICARE, SELFPAY | PROVIDERS: PCP Internal Medicine; Visit Provider Internal Medicine | DX: J44.9 Chronic obstructive pulmonary disease, unspecified (principal); G70.00 Myasthenia gravis without (acute) exacerbation; C15.5 Malignant neoplasm of lower third of esophagus | CPT/HCPCS: 99212 ==

== ENCOUNTER 2022-09-16 10:56 | Outpatient (REF) | payer MEDICARE, SELFPAY ==
[2022-09-16 13:54] LABS: MANUAL DIFF FLAG NO
[2022-09-16 14:16] LABS: Basophils Absolute Auto 0.1 X10*3/uL (0.0-0.2); Basophils Percent Auto 0.8 % (0-2); Eosinophils Absolute Auto 0.3 X10*3/uL (0.0-0.4); Eosinophils Percent Auto 3.6 % (0-4); Hematocrit 36.6 % (37.0-47.0); Hemoglobin 11.2 g/dl (12.0-16.0); Imm Gran Abs Auto 0.06 X10*3/uL (0.00-0.03); Imm Gran Pct Auto 0.7 % (0.0-0.4); Lymphocytes Percent Auto 11.5 % (20-40); Mean Corpuscular HGB Conc 30.6 g/dl (31.0-35.0); Mean Corpuscular Hemoglobin 26.3 pg (27.0-33.0); Mean Corpuscular Volume 85.9 fL (80.0-98.0); Mean Platelet Volume 10.2 fL (9.4-12.3); Monocytes Absolute Auto 0.8 X10*3/uL (0.1-1.2); Monocytes Percent Auto 9.2 % (2-11); Neutrophils Absolute Auto 6.1 x10*3/uL (2.0-8.3); Neutrophils Percent Auto 74.2 % (45-73); Platelet Count 357 X10*3/uL (160-400); Red Blood Count 4.26 X10*6/uL (4.20-5.50); Red Cell Distribution Width 15.5 % (11.0-16.0); White Blood Count 8.3 X10*3/uL (4.8-10.8)
[2022-09-16 14:23] LABS: Alanine Aminotransferase 8 U/L (0-31); Albumin Level 3.3 g/dL (3.5-5.0); Alkaline Phosphatase 113 U/L (39-117); Anion Gap 15 (12-20); Aspartate Amino Transferase 11 U/L (5-31); Bilirubin Total 0.3 mg/dL (0.0-1.0); Blood Urea Nitrogen 27 mg/dL (9-16); Calcium 9.9 mg/dL (8.4-10.2); Carbon Dioxide 27 mmol/L (22-29); Chloride 103 mmol/L (96-108); Estimated Glomerular Filt Rate 46; Glucose Random 95 mg/dL (60-115); Potassium 3.8 mmol/L (3.3-5.1); Sodium 141 mmol/L (135-145); Total Protein 6.9 g/dL (6.5-8.0)
[2022-09-16 15:12] LABS: Appearance Urine Clear; Color Urine Yellow; Glucose Urine UA Negative (Negative); Leukocyte Esterase Urine Large (3+) (Negative); Nitrite Urine Negative (Negative); UMIC TRIGGER UACC YES; Urine Blood Negative (Negative); Urine Ketones Negative (Negative); Urine Protein Negative (Neg-Trace)
[2022-09-16 15:15] LABS: Bacteria Urine 1+ (None Seen); UACC Culture Trigger YES; WBC Urine >50 /HPF (0-5)
== END 2022-09-16 10:57 | disposition home or self-care (01) ==
LOC: HO.HMGCLDS 10:56
PROVIDERS: PCP Internal Medicine; Visit Provider Internal Medicine
DX: N39.41 Urge incontinence (principal); C15.9 Malignant neoplasm of esophagus, unspecified
CPT/HCPCS: 36415; 80053; 81001; 85025; 87086

== ENCOUNTER 2022-09-22 09:02 | Day surgery (SDC) | payer MEDICARE, SELFPAY ==
--- NOTE | 2022-09-21 08:46 | HO.ANESPROP2 ---
Documented by User: Maty Rivera NP 09/21/22 08:51 HPI - Anesthesia Eval Consult details Narrative: 86yo F for Upper Endoscopy Esophageal CA with chemo/rad s/p EGD 10/2021 with GA-ETT 7 for foreign body/esoph mass Myesthenia Gravis well controlled on Prednisone 1 mg daily COUNTS INCLUDE 234 BEDS AT THE [facility] Active Problems Active Problems: All Active Problems (Updated 09/10/22 @ 14:12 by Abdoul Peoples MD) Cellulitis (Acute) Fall (on) (from) other stairs and steps, initial encounter (Acute) Acute chest wall pain (Acute) Upper back pain (Acute) Cellulitis (Acute) Esophageal mass (Acute) 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) Myasthenia gravis (Acute) COPD (chronic obstructive pulmonary disease) (Acute) Past Medical History Medical History Asthma COPD (chronic obstructive pulmonary disease) Myasthenia gravis Skin lesion of neck Family History Family History Mother Alzheimer disease Father Parkinson disease Surgical History Surgical History H/O right nephrectomy History of parotid gland excision Social History Social History Household Members: None Housing: House Are you a primary patient care director to a significant other at home: No Do you presently have visiting nurse or other home services: Yes Patient Tobacco Use Status: Former Tobacco user Use of substances other than those prescribed or required for medical reasons: No Have you been hit, kicked, punched, or otherwise hurt by someone within the past year? If so, by whom?: No Are you DNR?: No Advance Directives: No Advance Directives Information Provided: Yes Advance Directives Date on File: 10/31/21 Recently lost weight without trying: Yes How much weight loss: 14-23 pounds Eating poorly because of decreased appetite: No Nutrition screen score: 4 Nutrition Risks: No Nutritional Risk Patient : No service: No Current occupational status: retired Meds Allergies Allergy/AdvReac Type Severity Reaction Status Date / Time acetaminophen [From VICODIN] Allergy Unknown UNKNOWN Verified 09/10/22 14:04 hydrocodone [From VICODIN] Allergy Unknown UNKNOWN Verified 09/10/22 14:04 lisinopril [LISINOPRIL] Allergy Unknown ANGIOEDEMA, Verified 09/10/22 14:04 tongue swelling Home Medications Medication Instructions Recorded Confirmed Last Taken Type albuterol sulfate 90 mcg/actuation 2 puff inhalation Q4H PRN Wheezing 06/27/20 06/24/22 Unknown History aerosol inhaler furosemide 40 mg tablet 40 mg PO DAILY PRN Edema 06/27/20 06/24/22 Unknown History levothyroxine 88 mcg tablet 88 mcg PO DAILY 06/27/20 06/24/22 Unknown History metoprolol succinate 50 mg 50 mg PO DAILY 06/27/20 06/24/22 Unknown History tablet,extended release 24 hr omeprazole 20 mg capsule,delayed 40 mg PO DAILY 06/27/20 06/24/22 Unknown History release simvastatin 10 mg tablet 10 mg PO BEDTIME 06/27/20 06/24/22 Unknown History prednisone 1 mg tablet 1 tab PO DAILY 10/31/21 06/24/22 Unknown History cholecalciferol (vitamin D3) 50 50 mcg PO DAILY 09/10/22 Unknown History mcg (2,000 unit) capsule lactobacillus combination no.9 4 4,000 mmu cells PO DAILY 09/10/22 Unknown History billion cell capsule (Adult 50 Plus Probiotic) oxybutynin chloride 10 mg 10 mg PO DAILY 09/10/22 Unknown History tablet,extended release 24 hr Exam Exam Date and Time: September 21, 2022 0846 Pertinent Lab Results Pertinent Lab Results: Laboratory Tests 09/16/22 09/16/22 10:45 10:45 WBC 8.3 Hgb 11.2 L Hct 36.6 L Plt Count 357 Sodium 141 Potassium 3.8 Chloride 103 Carbon Dioxide 27 BUN 27 H Creatinine 1.13 Narrative Narrative: EKG 06/2022 Vent. Rate : 081 BPM ? ? Atrial Rate : 081 BPM ?? P-R Int : 182 ms? QRS Dur : 066 ms ? ? QT Int : 376 ms ? ? ? P-R-T Axes : 060 -11 036 degrees ?? QTc Int : 436 ms ? Normal sinus rhythm Low voltage QRS Septal infarct , age undetermined Abnormal ECG When compared with ECG of 31-OCT-2021 11:55, Septal infarct is now Present Assessment and Plan Assessment Anesthesia Assessment: Chart Reviewed Documented by User: Claude Kim MD 09/22/22 11:34 PMFSH Past Medical History Medical History Asthma COPD (chronic obstructive pulmonary disease) Myasthenia gravis Skin lesion of neck Family History Family History Mother Alzheimer disease Father Parkinson disease Family history of problems with anesthesia: No Surgical History Surgical History H/O right nephrectomy History of parotid gland excision History of Problems with Anesthesia: No Social History Social History Household Members: None Housing: House Are you a primary patient care director to a significant other at home: No Do you presently have visiting nurse or other home services: Yes Patient Tobacco Use Status: Former Tobacco user Use of substances other than those prescribed or required for medical reasons: No Have you been hit, kicked, punched, or otherwise hurt by someone within the past year? If so, by whom?: No Are you DNR?: No Advance Directives: No Advance Directives Information Provided: Yes Advance Directives Date on File: 10/31/21 Recently lost weight without trying: Yes How much weight loss: 14-23 pounds Eating poorly because of decreased appetite: No Nutrition screen score: 4 Nutrition Risks: No Nutritional Risk Patient : No service: No Current occupational status: retired Meds Allergies Allergy/AdvReac Type Severity Reaction Status Date / Time acetaminophen [From VICODIN] Allergy Unknown UNKNOWN Verified 09/10/22 14:04 hydrocodone [From VICODIN] Allergy Unknown UNKNOWN Verified 09/10/22 14:04 lisinopril [LISINOPRIL] Allergy Unknown ANGIOEDEMA, Verified 09/10/22 14:04 tongue swelling Home Medications Medication Instructions Recorded Confirmed Last Taken Type albuterol sulfate 90 mcg/actuation 2 puff inhalation Q4H PRN Wheezing 06/27/20 06/24/22 Unknown History aerosol inhaler furosemide 40 mg tablet 40 mg PO DAILY PRN Edema 06/27/20 06/24/22 Unknown History levothyroxine 88 mcg tablet 88 mcg PO DAILY 06/27/20 06/24/22 Unknown History metoprolol succinate 50 mg 50 mg PO DAILY 06/27/20 06/24/22 Unknown History tablet,extended release 24 hr omeprazole 20 mg capsule,delayed 40 mg PO DAILY 06/27/20 06/24/22 Unknown History release simvastatin 10 mg tablet 10 mg PO BEDTIME 06/27/20 06/24/22 Unknown History prednisone 1 mg tablet 1 tab PO DAILY 10/31/21 06/24/22 Unknown History cholecalciferol (vitamin D3) 50 50 mcg PO DAILY 09/10/22 Unknown History mcg (2,000 unit) capsule lactobacillus combination no.9 4 4,000 mmu cells PO DAILY 09/10/22 Unknown History billion cell capsule (Adult 50 Plus Probiotic) oxybutynin chloride 10 mg 10 mg PO DAILY 09/10/22 Unknown History tablet,extended release 24 hr Exam Airway Heart: rrr Lungs: cta Assessment and Plan Assessment Anesthesia Assessment: Anesthesia Plan Discussed Final Anesthetic Review Family History of Problems with Anesthesia: No History of Problems with Anesthesia: No NPO: Yes ASA Class: IV Final Preanesthetic Review: No Changes in Pt Med Stat, Meds/Allgs Chart Reviewed, Consent Obtained/Reviewed and Anes Risks/Benef Reviewed Patient Risk: High Procedure Risk: Intermediate Anesthetic Plan Anesthetic Plan: MAC: and Agree w/ Assess. and Plan Disposition: Standard PACU
[2022-09-22 10:13] VITALS: BP 119/66; PULSE 92; RESP 18; TEMP 36.3; O2SAT 94; BMI 28.6
--- NOTE | 2022-09-22 11:16 | P.HPSUR_ITS ---
Pre-Procedural Eval Section A Date of Service: 09/22/22 Section B Chief Complaint: Malignant neoplasm of esophagus, unspecified Details of Present Illness: see H&P no changes Relevant Family History (Specify if Yes): No Relevant Social History: None Present Medications: see Short Stay Collaborative assessment Medical History: No relevant PMH History of Previous Operations: No relevant previous surgery Allergies: Allergies Allergy/AdvReac Type Severity Reaction Status Date / Time acetaminophen [From VICODIN] Allergy Unknown UNKNOWN Verified 09/10/22 14:04 hydrocodone [From VICODIN] Allergy Unknown UNKNOWN Verified 09/10/22 14:04 lisinopril [LISINOPRIL] Allergy Unknown ANGIOEDEMA, Verified 09/10/22 14:04 tongue swelling Review of Systems Sugical H&P ROS: Negative: Constitution, Cardiovascular, Respiratory, Neuro logical, Psychiatric, Hem-Onc, Allergic/Immunologic, Gastrointestinal, Genitourinary, Musculoskeletal, Integumentary, Endocrine and Eyes/Ears/Nose/Throat Exam Surgical H&P Exam: Normal: HEENT, Normal: Heart, Normal: Lungs, Normal: Extremities, Normal: Abdomen, Normal: Skin and Normal: Neurological Plan Diagnosis/Plan: Unchanged I have reviewed the history and physical and performed a pertinent physical examination on my patient. No changes have occurred unless specified. Time Spent With Patient Time: Total time managing care of this patient today ____ minutes.
[2022-09-22] MEDS: Lactated Ringers 1,000 ML 100 ML IVCONT (11:18)
--- NOTE | 2022-09-22 12:00 | P.BOP_ITS ---
Brief Operative Note Date of Service: 09/22/22 Pre-op diagnosis: adenocaricnoma of esophagus Post-op diagnosis: same Surgeon: Leodan Segovia Anesthesia: MAC Was an Kitchen Clerk used for this Procedure?: No Estimated blood loss (mL): 2 Pathology: other Condition: stable Disposition: PACU
[2022-09-22 12:05] VITALS: BP 137/72; PULSE 93; RESP 16; TEMP 36.6; O2SAT 100
--- NOTE | 2022-09-22 12:16 | OP_ITS ---
DATE OF SERVICE: 09/22/2022 SURGEON: Leodan Segovia MD INDICATIONS: Adenocarcinoma of the esophagus with dysphagia. PREOPERATIVE DIAGNOSIS: POSTOPERATIVE DIAGNOSIS: PROCEDURE PERFORMED: Upper endoscopy with biopsy. ESTIMATED BLOOD LOSS: COMPLICATIONS: ANESTHESIA: Monitored anesthesia care. ASSISTANTS: SPECIMENS: DESCRIPTION OF PROCEDURE: A history and physical was performed. The risks and benefits of the procedure were explained to the patient. Informed consent was obtained. The patient was placed in the left lateral decubitus position. The Olympus video gastroscope was introduced into the esophagus, stomach, and duodenum. Examination was performed. The scope was removed. She tolerated the procedure well and was returned to the recovery area in stable condition. FINDINGS: Esophagus: The esophagus showed ulceration at the EG junction with friability and a mass extending just below the EG junction measuring approximately 3 to 4 cm suspicious for recurrent adenocarcinoma. The scope did pass into the stomach easily. There was some retained food noticed in the patient's hiatal hernia. This was washed and suctioned. Biopsies were obtained from the EG junction. No balloon dilation was performed. Stomach: The stomach showed a 5 cm hiatal hernia with retained food as above, which was washed and suctioned. Duodenum: The bulb and 2nd portion were not examined. IMPRESSION: Adenocarcinoma of the esophagus. RECOMMENDATION: Follow up the biopsy results. MD CONNIE Flores/SUKUMAR / [id number]
[2022-09-22 12:20] VITALS: BP 130/70; PULSE 80; RESP 16; O2SAT 98
[2022-09-22 12:35] VITALS: BP 123/69; PULSE 97; RESP 16; TEMP 36.6; O2SAT 98
== END 2022-09-22 13:35 | disposition home or self-care (01) ==
PROVIDERS: PCP Internal Medicine; Visit Provider Internal Medicine Gastroenterology
PROC: 0DJ08ZZ Inspection of Upper Intestinal Tract, Via Natural or Artificial Opening Endoscopic (ICD-10-PCS; CPT 43235; principal; 2022-09-22 10:20)
DX: C15.9 Malignant neoplasm of esophagus, unspecified (principal); R13.10 Dysphagia, unspecified; K44.9 Diaphragmatic hernia without obstruction or gangrene; I10 Essential (primary) hypertension; J44.9 Chronic obstructive pulmonary disease, unspecified; Z92.21 Personal history of antineoplastic chemotherapy; Z92.3 Personal history of irradiation; Z88.5 Allergy status to narcotic agent
CPT/HCPCS: 43239; 88305

== ENCOUNTER 2022-10-13 10:50 | Outpatient (REF) | payer MEDICARE, SELFPAY ==
--- NOTE | ~2022-10-13 | PE_ITS ---
EXAMINATION: Fluorine-18 FDG PET/CT Scan CLINICAL INDICATION: Subsequent treatment management. Malignant neoplasm of lower part of the esophagus. PROCEDURE: 65 minutes following the intravenous administration of 20.1 mCi of fluorine 18 FDG, images from the base of the skull to the mid thighs were obtained using a combined PET/CT scanner with CT scan based attenuation correction. No intravenous contrast was administered. Transverse, coronal, sagittal, and volume reconstruction projections were obtained. The patient's blood glucose as determined by a finger stick, was 94 mg/dl immediately prior to injection. The radiotracer was injected intravenously through left antecubital superficial vein, without any complications. Total CT exam dose-length product 639.38 mGy-cm * These CT images were obtained using dose optimization techniques as appropriate, variously including the following: Automated exposure control * Adjustment of mA and/or kV according to patient size (this includes techniques or standardized protocols for targeted exams where dose is matched to indication/reason for exam; i.e. extremities or head) * Use of iterative reconstruction technique COMPARISON: Prior PET CT studies done on 04/07/2022 and 11/18/2021. FINDINGS: NECK AND VISUALIZED HEAD: Persistent stable abnormal enlarged FDG avid solid nodule is noted involving the right lobe of the thyroid gland with SUV max of 7.3 (71/267). There are no additional sites of disease. Specifically, no FDG avid cervical lymphadenopathy present, unchanged. THORAX: Previously documented FDG avid circumferential mural thickening involving the distal thoracic esophagus is reidentified, shows curvilinear intense FDG avidity predominantly along the posterior aspect of the lesion with SUV max of 11.4. Previously SUV max on the study dated 04/07/2022 was 5.1 and it was 13.0 on the baseline study dated 11/18/2021. However, there are no paraesophageal or mediastinal or hilar FDG avid lymphadenopathy or features suspicious for local disease extension identified, appears similar to prior studies. There is a sub-5 mm noncalcified non-FDG avid lung nodules present at right upper lobe anteriorly (213/349), appear similar to prior studies. ABDOMEN AND PELVIS: No FDG avid lymphadenopathy at the portacaval, gastrohepatic ligament. There are no FDG avid lymph node identified around the celiac axis, common hepatic artery or splenic arteries. The left adrenal gland is enlarged, shows hypodense well-circumscribed approximately 2.3 cm maximum dimension mass without any significant FDG avidity, appear stable since the baseline study dated 11/18/2021. No focal lesion within the liver, spleen, right adrenal gland. The gallbladder, the biliary tree and the pancreas appear unremarkable. MUSCULOSKELETAL: Interval development of compression fracture of T4 and T5 vertebral bodies associated with mild FDG avidity, may represent benign versus pathologic compression fracture. Persistent stable chronic appearing compression fracture of T12 vertebral body without any FDG avidity is unchanged. VASCULAR: Calcific atherosclerotic disease of the aorta including significant calcific atherosclerotic disease of the coronary arteries. No evidence of aneurysm. SUV max OF MEDIASTINAL BLOOD POOL: 2.4 SUV max OF LIVER: 2.5 PET/PET CT fusion skull to thigh IMPRESSION: 1. Interval increase in FDG avidity at the site of the clinically known biopsy proved malignancy involving the distal thoracic esophagus since the most recent prior study dated 04/07/2022. 2. Interval development of compression fracture associated with FDG avidity involving T4 and T5 vertebral bodies, of indeterminate etiology. 3. Persistent stable abnormal enlarged solid FDG avid nodule involving the right lobe of the thyroid gland, unchanged since the baseline study dated 11/18/2021. 30-40% of PET positive lesions are found to be thyroid cancer. [place] thyroid Association guidelines recommend biopsy of all PET positive nodules greater than 1 cm that are not definitely benign on the diagnostic thyroid ultrasound. 4. No other significant interval change.
== END 2022-10-13 10:51 | disposition home or self-care (01) ==
LOC: HO.PET 10:50
PROVIDERS: PCP Internal Medicine; Visit Provider Internal Medicine
DX: Z13.89 Encounter for screening for other disorder (principal)

== ENCOUNTER 2023-01-02 09:11 | Outpatient (REF) | payer MEDICARE, SELFPAY | END 2023-01-02 09:12 | disposition home or self-care (01) | LOC: HO.HMGCLDS 09:11 | PROVIDERS: PCP Internal Medicine; Visit Provider Internal Medicine | DX: C15.9 Malignant neoplasm of esophagus, unspecified (principal); E78.00 Pure hypercholesterolemia, unspecified; D50.9 Iron deficiency anemia, unspecified; R60.9 Edema, unspecified; G62.9 Polyneuropathy, unspecified; G70.00 Myasthenia gravis without (acute) exacerbation; E55.9 Vitamin D deficiency, unspecified; N39.41 Urge incontinence; K21.9 Gastro-esophageal reflux disease without esophagitis; J45.30 Mild persistent asthma, uncomplicated; E03.9 Hypothyroidism, unspecified; I10 Essential (primary) hypertension | CPT/HCPCS: 36415; 80053; 80061; 82306; 84443; 85025 ==

== ENCOUNTER 2023-08-02 10:33 | Outpatient (AMB) | payer MEDICARE, MEDICAID, SELFPAY ==
[2023-08-02 10:39] VITALS: BP 140/70; PULSE 74; O2SAT 94; BMI 30.3
--- NOTE | 2023-08-02 10:39 | A.OFFVIS_ITS ---
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 Reports Analysis Manager Required: No Allergies acetaminophen [From VICODIN] Allergy (Unknown, Verified 08/02/23 11:09) UNKNOWN hydrocodone [From VICODIN] Allergy (Unknown, Verified 08/02/23 11:09) UNKNOWN lisinopril [LISINOPRIL] Allergy (Unknown, Verified 08/02/23 11:09) ANGIOEDEMA, tongue swelling Medication List - Last Reconciled 08/02/23 by Abdoul Peoples MD albuterol sulfate 90 mcg/actuation 2 puffs inhalation Q4H PRN ferrous sulfate 325 mg PO DAILY fluticasone propion-salmeterol 250-50 mcg/dose (Wixela Inhub) 1 ea PO BID furosemide 40 mg PO DAILY PRN gabapentin 300 mg (3 x 100 mg) PO BID lactobacillus combination no.9 (Adult 50 Plus Probiotic) 4,000 mmu cells PO DAILY lorazepam 0.5 mg PO DAILY PRN metoprolol succinate ER 50 mg PO DAILY omeprazole 40 mg PO DAILY oxybutynin chloride ER 10 mg PO DAILY prednisone 5 mg PO DAILY sennosides-docusate sodium 8.6-50 mg (Senna with Docusate Sodium) 1 tab-cap PO BEDTIME Do you need a note to return to daycare/school/sports/work: No 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 SHE DOES HAVE MILD TO MODERATE DEGREE OF COPD, WHICH IS REMAINING STABLE. SHE HAS A MILD CASE OF MYASTHENIA GRAVIS AND FOR TREATMENT SHE REMAINS ON PREDNISONE 5 MG DAILY. SHE IS IN WHEELCHAIR MOSTLY. SHE HAS ONLY OCCASIONAL, BOUT OF DYSPHAGIA, BUT BY DRINKING PLENTY OF WATER SHE CAN PUSH THE FOOD DOWN. SHE HAS HAD NO PULMONARY ASPIRATION. OCCASIONAL WHEEZING SPELLS WHICH ARE CLEARED BY USING ALBUTEROL P.R.N. [facility] Medical History Skin lesion of neck Asthma Myasthenia gravis COPD (chronic obstructive pulmonary disease) Surgical History History of parotid gland excision H/O right nephrectomy Family History Mother Alzheimer disease Father Parkinson disease Social History Household Members: None Housing: House Are you a primary healthcare financial analyst to a significant other at home: No Do you presently have visiting nurse or other home services: Yes Comment: 1 wk ago Patient Tobacco Use Status: Former Tobacco user Advance Directives Date on File: 10/31/21 service: No Current occupational status: retired Review of Systems Const All systems reviewed & are unremarkable except as noted in HPI and below Eyes Reports no additional complaints ENT Reports no additional complaints Card Denies chest pain and Reports dyspnea on exertion (Mild) Resp Reports as per HPI and Reports dyspnea on exertion (Mild) GI Reports no additional complaints Reports no additional complaints Musc Reports abnormal gait (Slightly impaired, needs cane), Reports back pain (Mild) and Reports arthralgias (Knees) Skin/Breast Reports system reviewed and no additional complaints, except as documented Neuro Reports abnormal gait (Slightly impaired, needs cane) Psych Reports no additional complaints Physical Exam Vital Signs: Last Vital Signs Pulse 74 08/02/23 10:39 BP 140/70 H 08/02/23 10:39 Pulse Ox 94 08/02/23 10:39 Oxygen Delivery Method Room Air 08/02/23 10:39 BMI result Body Mass Index 30.3 Const General: comfortable, no acute distress, alert and awake Orientation/consciousness: patient oriented x3 HEENT Head: Yes normal to inspection General nose exam: No nasal polyps present and No nasal discharge present Face and sinus: Yes sinuses nontender Mouth: oropharynx normal Throat: Yes posterior oropharynx normal Eyes General: appearance normal, both eyes and all related structures Neck Neck: Yes normal visual inspection, Yes no lymphadenopathy, Yes trachea midline and Yes no JVD Thyroid: Thyroid normal Chest Chest palpation & inspection: normal inspection of the chest, normal palpation of entire chest wall and no tenderness Resp Other: Percussion note resonant, breath sounds are distant, with slightly prolonged expiratory phase. No wheezes or rhonchi are heard. Cardio Palpation: normal PMI Rate: regular rate Rhythm: regular rhythm Heart sounds: no gallops and no murmurs GI Palpation (GI): Soft to palpation, nontender, No hepatosplenomegaly present and no masses Auscultation: normal bowel sounds Back/Spine/Pelvis Thoracic/Lumbar Spine: thoracic and lumbar spine normal to inspection and thoraco-lumbar ROM limited Skin General skin exam: no rashes or lesions noted Neuro General: patient oriented x3, gait normal (Slightly impaired uses cane) and no focal motor deficits Cranial nerves: Yes CN's II-XII intact bilaterally Extrem General: Yes normal to inspection, Yes no calf tenderness and Yes venous stasis dermatitis (Both lower legs worse on left side) Psych Appearance: grossly normal Speech and movement: Normal speech and movement present Assessment & Plan Assessment & Plan (1) COPD (chronic obstructive pulmonary disease): Comment: COPD, MODERATELY SEVERE, HOLDING VERY STABLE. Code(s): J44.9 - Chronic obstructive pulmonary disease, unspecified Category: Medical Plan: CONTINUE: ADVAIR 250-50 1 INHALATION B.I.D . IF NO ACTIVE SYMPTOMS, THEN MAY USE IT ONLY ONCE A DAY . PROAIR 2 PUFFS Q 6 HRS PRN FOR ANY ACUTE ATTACKS . (2) Myasthenia gravis: Comment: MYASTHENIA GRAVIS , IS WELL CONTROLLED, SHE IS ON MINIMAL DOSE OF PREDNISONE 5 mg daily . AND DOING WELL. Code(s): G70.00 - Myasthenia gravis without (acute) exacerbation Category: Medical Plan: ABOVE Coding Level of Care Code Est Pt Level 3 (05817) Diagnoses COPD (chronic obstructive pulmonary disease) J44.9 Myasthenia gravis G70.00
== END 2023-08-02 11:10 | disposition home or self-care (01) ==
PROVIDERS: PCP Internal Medicine; Visit Provider Internal Medicine
DX: J44.9 Chronic obstructive pulmonary disease, unspecified (principal); G70.00 Myasthenia gravis without (acute) exacerbation
CPT/HCPCS: 99213

== ENCOUNTER → 2023-08-02 10:33 | Outpatient (BNVA) | payer OTHER, MEDICARE, SELFPAY | PROVIDERS: PCP Internal Medicine; Visit Provider Internal Medicine | DX: J44.9 Chronic obstructive pulmonary disease, unspecified (principal); G70.00 Myasthenia gravis without (acute) exacerbation | CPT/HCPCS: 99212 ==

== ENCOUNTER → 2023-12-20 14:12 | Outpatient (RCR) | payer MEDICARE, SELFPAY ==
[2021-11-10 11:02] VITALS: BP 150/71; PULSE 85; RESP 16; TEMP 36.6; O2SAT 99; BMI 26.3
[2021-11-10 11:11] VITALS: BMI 27.9
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
--- NOTE | 2021-11-10 13:45 | MHC.HEMONCMA ---
Patient seen today for new consult for esphogeal masses, VSS, petscan and radiation ordered today, follow up TBD.
--- NOTE | 2021-11-10 15:24 | MHC.HEMONCSW ---
CONSULT FOR THIS 86 Y.O. FEMALE. RESIDES ALONE IN HER OWN HOME. DIAGNOSIS IS ESOPHAGEAL CANCER. 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 DAUGHTERS PRESENT...PAMELA/HCP [phone] AND ABIMAEL [phone]. THEY WILL PROVIDE TRANSPORTATION. REFERRED TO JOSE/FINANCIAL COUNSELOR. ENSURE SAMPLES GIVEN. COPY OF HCP WILL BE PROVIDED. EDUCATION, INFORMATION AND SUPPORT PROVIDED. PLAN IS PET SCAN AND CDRT. EXPLAINED MY ROLE AND AVAILABILITY.
--- NOTE | 2021-11-10 16:43 | MHC.HEMONC ---
I met with pt and her two dtrs following Consultation with Dr Shepard for esophageal cancer. She denies c/o at this time.She will be having PET and RT Consult (Maria Guadalupe TOPETE working on those referrals). Liza to get PET PA and appt. Her dtr will be assisting with transportation. I gave her my contact information and offered to answer any questions she has.
--- NOTE | 2021-11-11 08:22 | HO.HEMONCPA ---
NO PA IS REQUIRED FOR PET CT , I SENT IN CLINICAL INFORMATION TO [facility] . AWAITING APPT DATE & TIME .
--- NOTE | 2021-11-11 11:06 | MHC.HEMONCMA ---
faxed over to [facility] notes for referral.
--- NOTE | 2021-11-12 09:07 | MHC.HEMONCMA ---
[email or web address] appt is for 11/20/21 at 11:00am.
--- NOTE | 2021-11-12 13:54 | HO.HEMONCPA ---
REFAXED PET ORDER TO [facility] , AWAITING APPT DATE AND TIME .
--- NOTE | 2021-11-13 10:04 | MHC.HEMONC ---
Pt will be having PET next Wednesday and RT Consult at [facility] on 11/20. I made f/u with Dr Shepard the following week.
--- NOTE | 2021-11-14 08:19 | HO.HEMONCPA ---
PATIENT IS SCHEDULED FOR PET CT ON 11/18/21 AT 9:15AM
[2021-11-26 10:49] VITALS: BP 166/77; PULSE 95; RESP 16; TEMP 36.4; O2SAT 97; BMI 27.1
[2021-11-26 11:41] LABS: Hemoglobin 10.1 g/dl (12.0-16.0); Mean Corpuscular HGB Conc 30.6 g/dl (31.0-35.0); Mean Corpuscular Hemoglobin 23.4 pg (27.0-33.0); Mean Corpuscular Volume 76.4 fL (80.0-98.0); Mean Platelet Volume 9.7 fL (9.4-12.3); Platelet Count 389 X10*3/uL (160-400); Red Blood Count 4.32 X10*6/uL (4.20-5.50); Red Cell Distribution Width 17.7 % (11.0-16.0); White Blood Count 9.8 X10*3/uL (4.8-10.8)
--- NOTE | 2021-11-26 11:50 | MHC.HEMONC ---
Pt seen by Dr Shepard and I visited with her and her two dtrs following f/u with MD. Pt is feeling well and tolerating po. She has been seen by Dr Schmidt and CT planning booked for tomorrow. She will follow up here in a couple of weeks.
[2021-11-26 12:11] LABS: Alanine Aminotransferase 9 U/L (0-31); Albumin Level 3.3 g/dL (3.5-5.0); Alkaline Phosphatase 89 U/L (39-117); Anion Gap 13 (12-20); Aspartate Amino Transferase 11 U/L (5-31); Bilirubin Total 0.3 mg/dL (0.0-1.0); Blood Urea Nitrogen 26 mg/dL (9-16); Calcium 9.7 mg/dL (8.4-10.2); Carbon Dioxide 30 mmol/L (22-29); Chloride 103 mmol/L (96-108); Creatinine Clr Calc Pharmacy 34.6; Estimated Glomerular Filt Rate 47; Glucose Random 106 mg/dL (60-115); Potassium 3.9 mmol/L (3.3-5.1); Sodium 142 mmol/L (135-145); Total Protein 6.1 g/dL (6.5-8.0)
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
[2021-12-10 14:53] VITALS: BP 157/80; PULSE 95; RESP 15; TEMP 36.4; O2SAT 98; BMI 27.0
--- NOTE | 2021-12-10 15:25 | MHC.HEMONCMA ---
patient seen today for followup esophageal CA, VSS, Labs, chemo teach and follow up next week for treatment.
--- NOTE | 2021-12-10 17:20 | MHC.HEMONC ---
Chemotherapy teaching: Carbo/Taxol with radiation. Exam with Dr. Shepard. Patient accompanied by two daughters. Information sheets provided. Potential side effects, schedule, and when to call our department reviewed with patient and family. All questions and concerns addressed. Consent signed. Patient will start radiation @[facility] with start date for chemotherapy 12/19. Patient would like to have pre-chemo labs . Calender provided. Chemo pharmacy aware. Plan given to Cherelle to obtain PA.
--- NOTE | 2021-12-11 12:04 | HO.HEMONCPA ---
NO PA REQUIRED FOR PACLITAXEL & CARBOPLATIN. DRUGS COVERED UNDER MEDICARE PART B BENEFITS.
[2021-12-18 11:47] LABS: MANUAL DIFF FLAG NO
[2021-12-18 12:01] LABS: Basophils Absolute Auto 0.1 X10*3/uL (0.0-0.2); Basophils Percent Auto 0.8 % (0-2); Eosinophils Absolute Auto 0.5 X10*3/uL (0.0-0.4); Eosinophils Percent Auto 4.3 % (0-4); Hematocrit 38.4 % (37.0-47.0); Hemoglobin 11.4 g/dl (12.0-16.0); Imm Gran Abs Auto 0.04 X10*3/uL (0.00-0.03); Imm Gran Pct Auto 0.4 % (0.0-0.4); Lymphocytes Absolute Auto 1.7 X10*3/uL (1.2-4.9); Lymphocytes Percent Auto 15.2 % (20-40); Mean Corpuscular HGB Conc 29.7 g/dl (31.0-35.0); Mean Corpuscular Hemoglobin 23.6 pg (27.0-33.0); Mean Corpuscular Volume 79.3 fL (80.0-98.0); Mean Platelet Volume 10.8 fL (9.4-12.3); Monocytes Percent Auto 8.9 % (2-11); Neutrophils Absolute Auto 7.8 x10*3/uL (2.0-8.3); Neutrophils Percent Auto 70.4 % (45-73); Platelet Count 390 X10*3/uL (160-400); Red Blood Count 4.84 X10*6/uL (4.20-5.50); Red Cell Distribution Width 18.9 % (11.0-16.0)
[2021-12-18 12:10] LABS: Alanine Aminotransferase 11 U/L (0-31); Albumin Level 3.5 g/dL (3.5-5.0); Alkaline Phosphatase 101 U/L (39-117); Anion Gap 14 (12-20); Aspartate Amino Transferase 16 U/L (5-31); Bilirubin Total 0.4 mg/dL (0.0-1.0); Blood Urea Nitrogen 32 mg/dL (9-16); Calcium 10.1 mg/dL (8.4-10.2); Carbon Dioxide 32 mmol/L (22-29); Chloride 99 mmol/L (96-108); Creatinine Clr Calc Pharmacy 36.9; Estimated Glomerular Filt Rate 50; Glucose Random 113 mg/dL (60-115); Potassium 4.3 mmol/L (3.3-5.1); Sodium 141 mmol/L (135-145); Total Protein 6.3 g/dL (6.5-8.0)
[2021-12-18 12:28] LABS: HBc Num1 0.13 S/CO (0.00-0.79); HBsAGNum1 0.18 S/CO (0.00-0.99); Hepatitis B Core Antibody Nonreactive (Nonreactive); Hepatitis B Surface Antigen Negative (Negative); ~Hepatitis B Surface Antibody NONREACTIVE (Nonreactive)
[2021-12-19 08:38] VITALS: BP 145/68; PULSE 93; RESP 8; TEMP 36.9; O2SAT 93; BMI 27.6
[2021-12-19] MEDS: dexAMETHasone sod phosphate/NS 12 MG/50 ML PIGGYBACK 200 MG IV (09:16)
[2021-12-19] MEDS: diphenhydrAMINE HCL 25 MG TABLET PO (09:18)
[2021-12-19] MEDS: Famotidine/PF 20 MG/2 ML VIAL IVPUSH (09:18)
[2021-12-19 10:19] VITALS: BP 160/108; PULSE 80; RESP 4; TEMP 36.6; O2SAT 60
[2021-12-19 10:24] VITALS: BP 149/73; PULSE 92; RESP 14
[2021-12-19 10:26] VITALS: BP 157/68; PULSE 92; RESP 21; O2SAT 99
[2021-12-19 10:30] VITALS: BP 136/79; PULSE 92; RESP 21; O2SAT 96
[2021-12-19 11:00] VITALS: BP 123/56; PULSE 95; RESP 17; TEMP 36.3; O2SAT 94
[2021-12-19] MEDS: Hydrocortisone Sod Succ/PF 100 MG VIAL IVPUSH (12:03)
--- NOTE | 2021-12-19 15:09 | HO.HEMONCPA ---
NO PA REQUIRED FOR ABRAXANE. DRUG COVERED UNDER MEDICARE PART B BENEFITS
--- NOTE | 2021-12-19 15:17 | MHC.HEMONC ---
Addendum entered by Lesley Edwards RN 12/19/21 16:15: Pt and family called for well being check-pt states she feels well this afternoon. Requested if pt could come into clinic earlier for Abraxane/Carbo. Family states they are unable to come in earlier than Next Wednesday12/26/21. Dr Shepard notified. Original Note: Pt here for C1D1 Taxol/Carbo. Labs drawn earlier this [id number] to receive treatment today. Pt states she feels well today. #22 angio inserted in right AC with blood return noted. Vital signs stable. Pt has 1230 appointment today with radiation at [facility]. Pre medicated with decadron, benadryl, pepcid, zofran. Taxol started-pt instructed to ring bucio for any side effects. After 9 minutes pt rang bucio for assistance-pt was unresponsive and dusky. Taxol stopped, Dr Shepard notified and in room. Vital signs as noted. Breath sounds clear dim throughout. O2 SAT 60's. O2 via venti mask at 10L O2 on. 100mg Solucortef IV given. After 2 minutes pt regained consciousness and responding to questions. Vital signs as noted. IV fluids infusing. Pharmacy notified of reaction. After 30 minutes pt remained on O2 via NC at 2 L-Sao2 94 with 2L O2. Pt states she uses oxygen at times at home. Breathing slightly easier . Chemotherapy on hold for today per DR Shepard. Plan to change to Abraxane with next cycle. No PA required per Cherelle Rodríguez. [facility] radiation department called per Dr Shepard request-informed of pt's reaction to chemotherapy today. Radiation cancelled today per Dr Kyle. Family and pt notified. Peripheral IV removed-no edema at site. Discharge packet given with next appointment scheduled. Pt and family instructed to call clinic with any questions or side effects-verbalizes understanding to information given. Also instructed to come to ED for any further respiratory distress
[2021-12-25 11:19] LABS: MANUAL DIFF FLAG NO
[2021-12-25 11:24] LABS: Basophils Absolute Auto 0.1 X10*3/uL (0.0-0.2); Basophils Percent Auto 1.1 % (0-2); Eosinophils Absolute Auto 0.5 X10*3/uL (0.0-0.4); Eosinophils Percent Auto 5.5 % (0-4); Hematocrit 36.3 % (37.0-47.0); Imm Gran Abs Auto 0.06 X10*3/uL (0.00-0.03); Imm Gran Pct Auto 0.7 % (0.0-0.4); Lymphocytes Absolute Auto 1.3 X10*3/uL (1.2-4.9); Mean Corpuscular HGB Conc 30.3 g/dl (31.0-35.0); Mean Corpuscular Hemoglobin 23.6 pg (27.0-33.0); Mean Corpuscular Volume 77.9 fL (80.0-98.0); Monocytes Absolute Auto 0.8 X10*3/uL (0.1-1.2); Monocytes Percent Auto 9.4 % (2-11); Neutrophils Absolute Auto 5.8 x10*3/uL (2.0-8.3); Neutrophils Percent Auto 68.3 % (45-73); Platelet Count 334 X10*3/uL (160-400); Red Blood Count 4.66 X10*6/uL (4.20-5.50); Red Cell Distribution Width 18.8 % (11.0-16.0); White Blood Count 8.5 X10*3/uL (4.8-10.8)
--- NOTE | 2021-12-25 11:32 | MHC.HEMONC ---
Pt here for for blood draw. Labs drawn by tubular splitting machine tender-specimen to lab. No dexamethasone day before chemotherapy per Dr Shepard
[2021-12-25 11:42] LABS: Alanine Aminotransferase 17 U/L (0-31); Albumin Level 3.3 g/dL (3.5-5.0); Alkaline Phosphatase 103 U/L (39-117); Anion Gap 14 (12-20); Aspartate Amino Transferase 17 U/L (5-31); Bilirubin Total < 0.2 mg/dL (0.0-1.0); Blood Urea Nitrogen 29 mg/dL (9-16); Calcium 9.5 mg/dL (8.4-10.2); Carbon Dioxide 28 mmol/L (22-29); Chloride 103 mmol/L (96-108); Creatinine Clr Calc Pharmacy 39.5; Estimated Glomerular Filt Rate 54; Glucose Random 114 mg/dL (60-115); Potassium 4.6 mmol/L (3.3-5.1); Sodium 140 mmol/L (135-145)
[2021-12-26 10:23] VITALS: BP 153/73; PULSE 74; TEMP 36.7; O2SAT 95
[2021-12-26 10:24] VITALS: BMI 27.7
[2021-12-26] MEDS: Famotidine/PF 20 MG/2 ML VIAL IVPUSH (10:28)
[2021-12-26] MEDS: diphenhydrAMINE HCL 25 MG TABLET PO (10:28)
[2021-12-26] MEDS: dexAMETHasone sod phosphate/NS 12 MG/50 ML PIGGYBACK 200 MG IV (10:29)
--- NOTE | 2022-01-01 11:17 | MHC.HEMONC ---
Pt here for pre chemo lab draw. Labs drawn by manager building-specimen to lab
[2022-01-01 11:27] LABS: MANUAL DIFF FLAG NO
[2022-01-01 11:32] LABS: Basophils Absolute Auto 0.1 X10*3/uL (0.0-0.2); Basophils Percent Auto 1.1 % (0-2); Eosinophils Absolute Auto 0.3 X10*3/uL (0.0-0.4); Hemoglobin 11.1 g/dl (12.0-16.0); Imm Gran Abs Auto 0.03 X10*3/uL (0.00-0.03); Imm Gran Pct Auto 0.5 % (0.0-0.4); Lymphocytes Absolute Auto 0.8 X10*3/uL (1.2-4.9); Lymphocytes Percent Auto 12.3 % (20-40); Mean Corpuscular HGB Conc 30.8 g/dl (31.0-35.0); Mean Corpuscular Volume 77.8 fL (80.0-98.0); Mean Platelet Volume 9.8 fL (9.4-12.3); Monocytes Absolute Auto 0.5 X10*3/uL (0.1-1.2); Neutrophils Absolute Auto 4.9 x10*3/uL (2.0-8.3); Neutrophils Percent Auto 74.1 % (45-73); Platelet Count 310 X10*3/uL (160-400); Red Blood Count 4.63 X10*6/uL (4.20-5.50); Red Cell Distribution Width 19.2 % (11.0-16.0); White Blood Count 6.5 X10*3/uL (4.8-10.8)
[2022-01-01 11:50] LABS: Alanine Aminotransferase 11 U/L (0-31); Albumin Level 3.5 g/dL (3.5-5.0); Alkaline Phosphatase 101 U/L (39-117); Anion Gap 11 (12-20); Aspartate Amino Transferase 17 U/L (5-31); Bilirubin Total 0.4 mg/dL (0.0-1.0); Blood Urea Nitrogen 30 mg/dL (9-16); Calcium 9.5 mg/dL (8.4-10.2); Carbon Dioxide 31 mmol/L (22-29); Chloride 100 mmol/L (96-108); Creatinine Clr Calc Pharmacy 38.1; Estimated Glomerular Filt Rate 52; Glucose Random 116 mg/dL (60-115); Potassium 4.1 mmol/L (3.3-5.1); Sodium 138 mmol/L (135-145); Total Protein 6.2 g/dL (6.5-8.0)
[2022-01-02] MEDS: diphenhydrAMINE HCL 25 MG TABLET PO (10:39)
[2022-01-02] MEDS: dexAMETHasone sod phosphate/NS 12 MG/50 ML PIGGYBACK 200 MG IV (10:40)
[2022-01-02] MEDS: Famotidine/PF 20 MG/2 ML VIAL IVPUSH (10:40)
[2022-01-02 10:46] VITALS: BP 129/60; PULSE 93; RESP 17; TEMP 36.8; O2SAT 95; BMI 27.8
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
--- NOTE | 2022-01-02 15:52 | MHC.HEMONC ---
Pt here for C3D1 Abraxane/Carboplatin. Labs drawn yesterday reviewed. Pt states she feels well today except for constipation. Okay to receive treatment today. #22 angio inserted in right AC with blood return noted. Pre medicated with decadron, benadryl, pepcid, zofran. Abraxane/Carbo platin given as ordered-tolerated well. Peripheral IV removed-no edema or redness at site. Discharge summary given with next appointment scheduled. Dr Shepard into see pt. Pt instructed to call clinic with any side effects or concerns-verbalizes understanding
--- NOTE | 2022-01-06 08:31 | HE.ONCSEC ---
PATIENTS CAREGIVER CALLED WANTING TO CHANGE CHEMO DAYS . I TRANSFERRED THE CALL TO LES'S [facility]TENSION .
--- NOTE | 2022-01-06 11:54 | MHC.HEMONC ---
Nurse heard NANDO Condon at [facility] Rad/Onc, asking for fax of pt's recent lab work. Nurse faxed copies of CBC and CMP to [facility] fax: [phone], received fax confirmation receipt, also notified [facility] by phone.
[2022-01-08 10:57] LABS: MANUAL DIFF FLAG NO
[2022-01-08 11:12] LABS: Basophils Absolute Auto 0.1 X10*3/uL (0.0-0.2); Basophils Percent Auto 0.6 % (0-2); Eosinophils Absolute Auto 0.2 X10*3/uL (0.0-0.4); Eosinophils Percent Auto 1.7 % (0-4); Hematocrit 36.4 % (37.0-47.0); Hemoglobin 11.2 g/dl (12.0-16.0); Imm Gran Abs Auto 0.05 X10*3/uL (0.00-0.03); Imm Gran Pct Auto 0.5 % (0.0-0.4); Lymphocytes Absolute Auto 0.6 X10*3/uL (1.2-4.9); Lymphocytes Percent Auto 6.2 % (20-40); Mean Corpuscular HGB Conc 30.8 g/dl (31.0-35.0); Mean Corpuscular Hemoglobin 24.4 pg (27.0-33.0); Mean Corpuscular Volume 79.3 fL (80.0-98.0); Mean Platelet Volume 9.6 fL (9.4-12.3); Monocytes Absolute Auto 0.7 X10*3/uL (0.1-1.2); Monocytes Percent Auto 7.4 % (2-11); Neutrophils Percent Auto 83.6 % (45-73); Platelet Count 282 X10*3/uL (160-400); Red Blood Count 4.59 X10*6/uL (4.20-5.50); White Blood Count 9.6 X10*3/uL (4.8-10.8)
[2022-01-08 11:21] LABS: Alanine Aminotransferase 13 U/L (0-31); Albumin Level 3.5 g/dL (3.5-5.0); Alkaline Phosphatase 96 U/L (39-117); Anion Gap 14 (12-20); Aspartate Amino Transferase 16 U/L (5-31); Bilirubin Total 0.3 mg/dL (0.0-1.0); Blood Urea Nitrogen 31 mg/dL (9-16); Calcium 9.6 mg/dL (8.4-10.2); Carbon Dioxide 30 mmol/L (22-29); Chloride 100 mmol/L (96-108); Creatinine Clr Calc Pharmacy 38.1; Estimated Glomerular Filt Rate 52; Glucose Random 104 mg/dL (60-115); Potassium 4.7 mmol/L (3.3-5.1); Sodium 139 mmol/L (135-145); Total Protein 6.3 g/dL (6.5-8.0)
--- NOTE | 2022-01-08 17:55 | MHC.HEMONC ---
Pt was in today for pre-chemo labs, had blood drawn from her arm, peripherally, then departed. This nurse faxed copies of CBC, CMP to [facility] Rad/Onc, as requested, received fax confirmation receipt. Pt departed, to return tomorrow for next chemo cycle.
[2022-01-09 10:11] VITALS: BP 144/84; PULSE 92; RESP 18; TEMP 36.7; O2SAT 98; BMI 27.5
[2022-01-09] MEDS: Acetaminophen 325 MG TABLET 650 MG PO (11:02)
[2022-01-09] MEDS: Famotidine/PF 20 MG/2 ML VIAL IVPUSH (11:05)
[2022-01-09] MEDS: dexAMETHasone sod phosphate/NS 12 MG/50 ML PIGGYBACK 200 MG IV (11:31)
[2022-01-09] MEDS: diphenhydrAMINE HCL 25 MG CAPSULE PO (11:32)
--- NOTE | 2022-01-09 15:39 | MHC.HEMONC ---
Here for C4 D1 Abraxane/Carbo. Labs done 01/08 reviewed. Pt states is feeling good. Tolerating treatments well. IV started left AC with good blood return noted. Premeds given as ordered. Treatment done and tolerated well. Next treatment scheduled for 1 week. Departure packet given and pt departed unit.
[2022-01-15 11:08] LABS: MANUAL DIFF FLAG NO
[2022-01-15 11:17] LABS: Basophils Percent Auto 0.7 % (0-2); Eosinophils Absolute Auto 0.1 X10*3/uL (0.0-0.4); Eosinophils Percent Auto 2.1 % (0-4); Hemoglobin 10.9 g/dl (12.0-16.0); Imm Gran Abs Auto 0.03 X10*3/uL (0.00-0.03); Imm Gran Pct Auto 0.7 % (0.0-0.4); Lymphocytes Absolute Auto 0.5 X10*3/uL (1.2-4.9); Lymphocytes Percent Auto 11.9 % (20-40); Mean Corpuscular HGB Conc 32.1 g/dl (31.0-35.0); Mean Corpuscular Hemoglobin 25.5 pg (27.0-33.0); Mean Corpuscular Volume 79.4 fL (80.0-98.0); Mean Platelet Volume 9.3 fL (9.4-12.3); Monocytes Absolute Auto 0.4 X10*3/uL (0.1-1.2); Neutrophils Absolute Auto 3.1 x10*3/uL (2.0-8.3); Neutrophils Percent Auto 74.6 % (45-73); Platelet Count 247 X10*3/uL (160-400); Red Blood Count 4.28 X10*6/uL (4.20-5.50); Red Cell Distribution Width 20.3 % (11.0-16.0); White Blood Count 4.2 X10*3/uL (4.8-10.8)
--- NOTE | 2022-01-15 11:25 | MHC.HEMONC ---
Pt here for pre chemo lab draw. Blood drawn by data miner-specimen to lab
[2022-01-15 11:47] LABS: Alanine Aminotransferase 11 U/L (0-31); Albumin Level 3.6 g/dL (3.5-5.0); Alkaline Phosphatase 99 U/L (39-117); Anion Gap 14 (12-20); Aspartate Amino Transferase 17 U/L (5-31); Bilirubin Total 0.2 mg/dL (0.0-1.0); Blood Urea Nitrogen 33 mg/dL (9-16); Calcium 9.7 mg/dL (8.4-10.2); Carbon Dioxide 28 mmol/L (22-29); Chloride 102 mmol/L (96-108); Creatinine Clr Calc Pharmacy 41.1; Estimated Glomerular Filt Rate 57; Glucose Random 127 mg/dL (60-115); Potassium 3.6 mmol/L (3.3-5.1); Sodium 140 mmol/L (135-145); Total Protein 6.4 g/dL (6.5-8.0)
[2022-01-16 10:29] VITALS: BMI 27.6
[2022-01-16 10:30] VITALS: BP 151/67; PULSE 94; TEMP 36.3; O2SAT 96
[2022-01-16] MEDS: Acetaminophen 325 MG TABLET 650 MG PO (10:39)
[2022-01-16] MEDS: dexAMETHasone sod phosphate/NS 12 MG/50 ML PIGGYBACK 200 MG IV (10:39)
[2022-01-16] MEDS: Famotidine/PF 20 MG/2 ML VIAL IVPUSH (10:39)
[2022-01-16] MEDS: diphenhydrAMINE HCL 25 MG CAPSULE PO (11:01)
--- NOTE | 2022-01-16 14:24 | MHC.HEMONC ---
Here for c5 abraxane/carboplatin. Radiation is ending on Wednesday next week so no further chemo scheduled. Labs drawn yesterday, reviewed. Premeds and chemotherapy tolerated well. Follow up with Dr Shepard scheduled in 3 weeks.
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
[2022-02-04 15:15] VITALS: BP 139/67; PULSE 91; RESP 12; TEMP 36.6; O2SAT 95; BMI 27.3
[2022-02-04 15:18] LABS: MANUAL DIFF FLAG NO
[2022-02-04 15:22] LABS: Basophils Percent Auto 0.3 % (0-2); Eosinophils Absolute Auto 0.1 X10*3/uL (0.0-0.4); Eosinophils Percent Auto 2.9 % (0-4); Hematocrit 33.7 % (37.0-47.0); Hemoglobin 10.6 g/dl (12.0-16.0); Lymphocytes Percent Auto 29.3 % (20-40); Mean Corpuscular HGB Conc 31.5 g/dl (31.0-35.0); Mean Corpuscular Hemoglobin 25.9 pg (27.0-33.0); Mean Corpuscular Volume 82.2 fL (80.0-98.0); Mean Platelet Volume 8.9 fL (9.4-12.3); Monocytes Absolute Auto 0.4 X10*3/uL (0.1-1.2); Monocytes Percent Auto 12.2 % (2-11); Neutrophils Absolute Auto 1.9 x10*3/uL (2.0-8.3); Neutrophils Percent Auto 55.3 % (45-73); Platelet Count 155 X10*3/uL (160-400); White Blood Count 3.5 X10*3/uL (4.8-10.8)
[2022-02-04 15:46] LABS: Alanine Aminotransferase 14 U/L (0-31); Albumin Level 3.4 g/dL (3.5-5.0); Alkaline Phosphatase 108 U/L (39-117); Anion Gap 14 (12-20); Aspartate Amino Transferase 15 U/L (5-31); Bilirubin Total 0.4 mg/dL (0.0-1.0); Blood Urea Nitrogen 24 mg/dL (9-16); Calcium 9.5 mg/dL (8.4-10.2); Carbon Dioxide 26 mmol/L (22-29); Chloride 103 mmol/L (96-108); Creatinine Clr Calc Pharmacy 30.9; Estimated Glomerular Filt Rate 41; Glucose Random 118 mg/dL (60-115); Potassium 4.1 mmol/L (3.3-5.1); Sodium 139 mmol/L (135-145); Total Protein 5.9 g/dL (6.5-8.0)
--- NOTE | 2022-02-04 16:41 | MHC.HEMONCMA ---
Pt was in for follow up. Clinical summary reviewed and updated, VSS. Labs were drawn. Pt to return in 1 month.
[2022-03-11 14:11] VITALS: BP 113/58; PULSE 88; RESP 15; TEMP 36.4; O2SAT 97; BMI 27.6
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
--- NOTE | 2022-03-11 14:43 | MHC.HEMONCMA ---
patient seen today for followup esophageal ca, VSS, petscan ordered and given to MS madai davis on Mar 31, 2022,
--- NOTE | 2022-03-12 13:07 | HO.HEMONCPA ---
PET/CT SCAN APPT.REQUEST SENT VIA FAX TO [facility]. AWAITING APPT. DATE & TIME
--- NOTE | 2022-03-31 15:51 | MHC.HEMONCMA ---
called LM on for daughter Silke [phone] tomorrows appt is cancelled and will be booked for 1 1/2 after petscan is done. Also Bia will be calling her to book tomorrow-she is on list to call. Confirmed with Savage.
--- NOTE | 2022-04-02 11:46 | HO.HEMONCPA ---
JUST RECIEVED FAX JENNIFER FROM [facility] ,PATIENT IS SCHEDULED FOR PET 04/07/22 AT 10:15AM
[2022-04-13 15:48] VITALS: BP 143/72; PULSE 100; RESP 12; TEMP 37.5; O2SAT 94; BMI 27.3
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
[2022-04-13 16:09] LABS: MANUAL DIFF FLAG NO
[2022-04-13 16:13] LABS: Basophils Absolute Auto 0.1 X10*3/uL (0.0-0.2); Basophils Percent Auto 0.7 % (0-2); Eosinophils Absolute Auto 0.2 X10*3/uL (0.0-0.4); Eosinophils Percent Auto 3.4 % (0-4); Hemoglobin 10.9 g/dl (12.0-16.0); Imm Gran Abs Auto 0.03 X10*3/uL (0.00-0.03); Imm Gran Pct Auto 0.4 % (0.0-0.4); Lymphocytes Absolute Auto 0.7 X10*3/uL (1.2-4.9); Lymphocytes Percent Auto 9.7 % (20-40); Mean Corpuscular HGB Conc 32.1 g/dl (31.0-35.0); Mean Corpuscular Hemoglobin 28.7 pg (27.0-33.0); Mean Corpuscular Volume 89.5 fL (80.0-98.0); Mean Platelet Volume 9.2 fL (9.4-12.3); Monocytes Absolute Auto 1.1 X10*3/uL (0.1-1.2); Monocytes Percent Auto 15.1 % (2-11); Neutrophils Percent Auto 70.7 % (45-73); Platelet Count 201 X10*3/uL (160-400); Red Cell Distribution Width 14.6 % (11.0-16.0); White Blood Count 7.1 X10*3/uL (4.8-10.8)
[2022-04-13 16:36] LABS: Alanine Aminotransferase 8 U/L (0-31); Albumin Level 3.3 g/dL (3.5-5.0); Alkaline Phosphatase 97 U/L (39-117); Anion Gap 13 (12-20); Aspartate Amino Transferase 12 U/L (5-31); Bilirubin Total 0.4 mg/dL (0.0-1.0); Blood Urea Nitrogen 31 mg/dL (9-16); Calcium 9.4 mg/dL (8.4-10.2); Carbon Dioxide 26 mmol/L (22-29); Chloride 103 mmol/L (96-108); Creatinine Clr Calc Pharmacy 38.9; Estimated Glomerular Filt Rate 53; Glucose Random 113 mg/dL (60-115); Potassium 4.4 mmol/L (3.3-5.1); Sodium 138 mmol/L (135-145); Total Protein 6.2 g/dL (6.5-8.0)
--- NOTE | 2022-04-13 16:36 | MHC.HEMONCMA ---
Pt was in for follow up. Clinical summary reviewed and updated, VSS. Labs were drawn. Pt to return in 2 months.
--- NOTE | 2022-05-28 16:48 | MHC.HEMONC ---
Pt's dtr, Liat Barahona, left on triage line, requested refill for her mother for Gabapentin 100 mg caps - take 200 mg PO BID, also ferrous sulfate 325 mg PO Daily, and Sennosides/docusate sodium 8.6-50 mg tablets. Nurse called pt's Lisa, they stated pt's other provider, Dr. Lawrence, had written one month's worth scrip for gabapentin in April, but this nurse questioned this, as it appeared Dr. Shepard's last scrip from Mar, 2022, included 6 refills. [facility] pharmacist confirmed this was true, said that pt still has access to these refills, but today is too soon to refill. This nurse called pt's dtr, Liat, at [phone], no answer, left detailed voicemail explaining the above, left CB#. Nurse requested Dr. Shepard send new scrips for the Ferrous sulfate and Senna/colace tabs.
[2022-06-24 09:41] VITALS: BP 141/65; PULSE 72; TEMP 36.7; O2SAT 97; BMI 26.2
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
[2022-06-24 10:16] LABS: Basophils Absolute Auto 0.1 X10*3/uL (0.0-0.2); Eosinophils Absolute Auto 0.3 X10*3/uL (0.0-0.4); Eosinophils Percent Auto 4.1 % (0-4); Hematocrit 34.7 % (37.0-47.0); Hemoglobin 11.2 g/dl (12.0-16.0); Imm Gran Abs Auto 0.08 X10*3/uL (0.00-0.03); Lymphocytes Absolute Auto 1.2 X10*3/uL (1.2-4.9); Lymphocytes Percent Auto 15.9 % (20-40); MANUAL DIFF FLAG SCAN; Mean Corpuscular HGB Conc 32.3 g/dl (31.0-35.0); Mean Corpuscular Hemoglobin 27.2 pg (27.0-33.0); Mean Corpuscular Volume 84.2 fL (80.0-98.0); Monocytes Absolute Auto 0.9 X10*3/uL (0.1-1.2); Monocytes Percent Auto 11.9 % (2-11); NRBC Pct Auto 0.4 /100WBC (0.0-0.2); Neutrophils Percent Auto 66.1 % (45-73); PLT CLUMP 1; Red Blood Count 4.12 X10*6/uL (4.20-5.50); Red Cell Distribution Width 15.3 % (11.0-16.0); SCAN SMEAR FLAG 1
--- NOTE | 2022-06-24 10:16 | MHC.HEMONCMA ---
patient seen today for esophageal cancer, vss, labs, follow up in [address] scan ordered and entered in [facility], [facility] ordered and given to Jenna.
[2022-06-24 10:34] LABS: Alanine Aminotransferase 10 U/L (0-31); Albumin Level 3.3 g/dL (3.5-5.0); Alkaline Phosphatase 110 U/L (39-117); Anion Gap 12 (12-20); Aspartate Amino Transferase 13 U/L (5-31); Bilirubin Total 0.4 mg/dL (0.0-1.0); Blood Urea Nitrogen 27 mg/dL (9-16); Calcium 9.8 mg/dL (8.4-10.2); Carbon Dioxide 28 mmol/L (22-29); Chloride 105 mmol/L (96-108); Estimated Glomerular Filt Rate 44; Glucose Random 108 mg/dL (60-115); Potassium 4.6 mmol/L (3.3-5.1); Sodium 140 mmol/L (135-145); Total Protein 6.3 g/dL (6.5-8.0)
[2022-06-24 11:18] LABS: White Blood Count 7.6 X10*3/uL (4.8-10.8)
[2022-06-24 11:19] LABS: Platelet Count 245 X10*3/uL (160-400); SLIDE REVIEW VERIFIED
--- NOTE | 2022-06-24 11:40 | MHC.HEMONC ---
Referral to [facility] made per order of Dr Shepard. Note faxed.
--- NOTE | 2022-06-29 09:52 | MHC.HEMONCMA ---
Daughter called and wanted Dr. Shepard to review chest xray done in ER on 06/27/22, informed her that she is out of office this week and will check in with other provider. call back is [phone]
--- NOTE | 2022-06-30 09:08 | MHC.HEMONC ---
Triage call- Liat Bower called re: mother Lorri Skinner and next appointment and ? ct or pet scan being ordered and had questions about thyroid nodule. This nurse checked with Maria Guadalupe TOPETE and she reported the cxr was wnl and no abx needed but DR Shepard ordered a Chest CT which they are working on and will call you with a date once everything is done. This nurse communicated this to patients daughter Liat.
--- NOTE | 2022-07-03 08:14 | MHC.HEMONC ---
I was informed via voicemail from [facility] that patient and her daughter refused services at this time.
--- NOTE | 2022-07-14 13:56 | HE.ONCSEC ---
Dr Lawrence office called for last office notes. Faxed last office notes and latest lab results to Dr Mojica
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
[2022-09-25 10:35] VITALS: BP 115/59; PULSE 84; RESP 15; TEMP 36.6; O2SAT 96
--- NOTE | 2022-09-25 10:57 | MHC.HEMONCMA ---
Patient seen today for followup esophageal ca,VSS, 3 month followup.
--- NOTE | 2022-09-25 14:31 | MHC.HEMONCMA ---
Bia ordered and given to MS to authorize.
--- NOTE | 2022-09-28 09:03 | HO.HEMONCPA ---
NO PA NEEDED FOR PET/CT CPT 80763 FAXED [facility] TO SCHEDULE
--- NOTE | 2022-10-05 15:40 | HO.HEMONCSCH ---
Addendum entered by Sofi Acosta 10/05/22 15:40: PET/CT SCAN [id number] BOOKED AT [facility] ON 10/13/22 AT 11:15AM GIVEN TO LEIGHA Capps Note: PET/CT SCAN [id number] BOOKED AT [facility] ON 10/13/22 AT 11:15AM
--- NOTE | 2022-10-07 13:37 | MHC.HEMONC ---
Pt's dtr, Silke Calixto, left , requests a scrip for Lorazepam PRN for pt to take before upcoming PET scan, to be sent to pt's preferred [facility]. Nurse gave Dr. Shepard the request, noted that in the past, provider has written scrip for lorazepam 0.5 mg PO BID PRN for anxiety, quantity of 5.
--- NOTE | 2022-10-09 10:25 | MHC.HEMONC ---
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
--- NOTE | 2022-10-16 11:39 | MHC.HEMONC ---
I left voicemail for pt daughter to call me back at request of Dr Shepard to inform her of PET result and to schedule f/u.
--- NOTE | 2022-10-20 09:47 | HE.ONCSEC ---
LVM reminding pt of appt on 10/21/22
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
--- NOTE | 2022-10-21 11:47 | MHC.HEMONCMA ---
Patient seen today to discuss test results, VSS, to followup when needed.
--- NOTE | 2022-10-28 15:58 | MHC.HEMONC ---
Pt daughter Liat Young called stating that her mother was put on antibiotics by Dr Shepard for cellulitis of her legs and they are not getting better. Dr Shepard notified and wants patient to see PCP. NANOD left on Liat cell phone #[phone] letting her know that Dr Shepard wants her to call PCP.
--- NOTE | 2023-01-22 11:47 | MHC.HEMONC ---
Pt dtrSilke called late yesterday to say that her mother was coughing and PCP wasn't calling back. I spoke to Dr Shepard this morning and told her that Dr Shepard ordered azithromycin. She had also reached out to PCP again but said she would tell her mother just to take the one antibiotic that Dr Shepard ordered this morning.
--- NOTE | 2023-01-29 12:18 | PM.EVENT ---
Received phone call from daughter stating that mother has been going downhill in the last few months. As discussed previously, they would now like to pursue hospice care. They will be referred to [facility] hospice at their request.
--- NOTE | 2023-01-29 14:16 | MHC.HEMONC ---
Referral made to [facility] per Dr Shepard at daughter (and family) request.
--- NOTE | 2023-02-10 09:17 | HE.ONCSEC ---
Rec'd phone call from [facility] pt will be admitted to Hospice 02/11/23. Informed Maria Guadalupe Henson of information.
--- NOTE | 2023-12-20 09:54 | MHC.HEMONC ---
Call from Hospice reporting that pt over the weekend.
== END | disposition home or self-care (01) ==
LOC: HO.ONC 11-10 10:49
PROVIDERS: Internal Medicine Medical Oncology; PCP Internal Medicine; Referring Provider Internal Medicine; Visit Provider Internal Medicine
DX: C15.5 Malignant neoplasm of lower third of esophagus (principal); Z92.21 Personal history of antineoplastic chemotherapy; Z92.3 Personal history of irradiation
CPT/HCPCS: 36415; 80053; 82378; 85025; 85027; 86704; 86706; 87340; 88360; 96374; 96375; 96413; 96415; 96417; 99205; 99213; 99214; J1100; J2405; J9045; J9264; J9267; Q0163